=== PATIENT | female | born 1940 | race Caucasian/White ===

== ENCOUNTER 2022-02-13 12:24 | Inpatient (IN) | payer MEDICARE, BC, SELFPAY ==
[2022-02-13] VITALS (10 sets, daily range): BP systolic 124–156; BP diastolic 58–88; PULSE 69–85; RESP 16–24; TEMP 36.3–36.6; O2SAT 97–100
--- NOTE | ~2022-02-13 | US_ITS ---
EXAMINATION: US renal BI DATE: 02/14/2022 13:16 INDICATION: Renal insufficiency TECHNIQUE: Multiple grayscale and Doppler ultrasound images of the kidneys were obtained. COMPARISON: None. FINDINGS: The right kidney measures 10.2 x 4.5 x 5.8 cm. The left kidney measures 10.5 x 4.3 x 5.7 cm . The kidneys demonstrate normal parenchymal echogenicity. There is no hydronephrosis. The bladder is decompressed and not well visualized. IMPRESSION: 1. Normal kidneys without hydronephrosis. Reviewed, dictated and finalized at location A.
--- NOTE | ~2022-02-13 | CT_ITS ---
EXAMINATION: CTA chest PE protocol DATE: 02/13/2022 15:38 INDICATION: pulmonary embolism TECHNIQUE: Computed tomography angiography (CTA) of the chest was performed with 100 mL Omnipaque-350 intravenous contrast timed to evaluate the pulmonary arteries. Coronal maximum intensity projection 3D-reconstructions were created by the technologist. The dose-length product (DLP) was 661.17 mGy-cm. Automated exposure control and iterative reconstruction technique were employed. COMPARISON: None. FINDINGS: Lung parenchyma and airways: 1.4 cm spiculated right upper lobe pulmonary nodule, with adjacent pleur al retraction. Interlobular septal thickening. Senescent change with bilateral basilar scar/atelectas is. More focal appearing heterogeneous somewhat rounded opacity in the right lung base. Pleura: Right hemithorax pleural thickening and scarring. Small volume right sided pleural effusion. Thoracic inlet, axillae and chest wall: Unremarkable. Thoracic aorta: Ectasia and mild arch calcification. Mediastinum: Right hilar and mediastinal lymphadenopathy. Dilated central pulmonary arteries as can b e seen with pulmonary arterial hypertension. Small hiatal hernia. Heart and pericardium: Cardiomegaly. Aortic valve calcification. Coronary artery calcifications: Mild. Upper abdomen: No significant finding. Bones: No acute osseous finding. Pulmonary arteries: Study quality: Adequate. No pulmonary emboli detected. IMPRESSION: No CT evidence of acute pulmonary embolus. 1.4 cm right upper lobe pulmonary nodule, recommend follow -up CT in 3 months, PET/CT, or tissue sampling, per Fleischner guidelines. Right basilar atelectasis/ consolidation. Right pleural thickening and small subpleural effusion. Hilar and mediastinal lymphade nopathy. Reviewed, dictated and finalized at location K. IMPRESSION: No CT evidence of acute pulmonary embolus. 1.4 cm right upper lobe pulmonary no dule, recommend follow-up CT in 3 months, PET/CT, or tissue sampling, per Flealthea chner guidelines. Right basilar atelectasis/consolidation. Right pleural thicke danni and small subpleural effusion. Hilar and mediastinal lymphadenopathy.
--- NOTE | ~2022-02-13 | XR_ITS ---
XR chest 1V 02/13/2022 13:25 Indication: Cough Procedure: AP portable chest Comparison: No prior studies for comparison. Findings: Patchy bilateral airspace disease. Portacatheter tip in the SVC. Cardiomegaly. There is api wilder pleural capping bilaterally. No pneumothorax. Small pleural effusions. Impression: 1: Patchy bilateral airspace disease, compatible with pneumonia. 2: Small pleural effusions. Reviewed, dictated and finalized at location A. Impression: 1: Patchy bilateral airspace disease, compatible with pneumonia. 2: Small pleural effusions.
--- NOTE | ~2022-02-13 | XR_ITS ---
EXAMINATION: XR chest 1V portable DATE: 02/14/2022 08:49 INDICATION: Congestive heart failure. TECHNIQUE: frontal view of the chest was obtained. COMPARISON: Chest radiograph and CT dated 02/13/2022 FINDINGS: Left internal jugular central venous port catheter with distal tip at the superior cavoatrial junctio n. Unchanged opacities in the right mid to lower and left lower lung zones. This includes a small rig ht pleural effusion on prior CT. No new opacities, pneumothorax or left-sided pleural effusion. Cardi omegaly. IMPRESSION: 1. Unchanged opacities in the right mid and bilateral lower lung zones which corresponds to atelectas is/scarring and a small right pleural effusion on prior CT. 2. Cardiomegaly. Reviewed, dictated and finalized at location B. IMPRESSION: 1. Unchanged opacities in the right mid and bilateral lower lung zones which co rresponds to atelectasis/scarring and a small right pleural effusion on prior C T. 2. Cardiomegaly.
--- NOTE | ~2022-02-13 | US_ITS ---
EXAMINATION:US venous doppler LE BI INDICATION:Leg swelling TECHNIQUE: Multiple grayscale, color flow and Doppler images of the right and left lower extremity de ep venous systems were obtained and reviewed. COMPARISON:No prior studies for comparison. FINDINGS: The common femoral, superficial femoral and popliteal veins demonstrate normal respiratory variation, augmentation and compressibility. Color flow is also seen within the posterior tibial, pe roneal, greater saphenous and profunda veins. IMPRESSION: 1: No lower extremity deep venous thrombosis. Reviewed, dictated and finalized at location A.
--- NOTE | 2022-02-13 12:50 | ECG_ITS ---
Measurements Intervals [place] Rate: 77 P: 5 PA: 125 QRS: 7 QRSD: 101 T: 27 QT: 412 QTc: 467 Interpretive Statements SINUS RHYTHM NO PREVIOUS ECG AVAILABLE FOR COMPARISON Electronically Signed On 02-14-2022 11:32:14 CDT by Keira Hawk M.D.
[2022-02-13 13:17] LABS: Basophils Absolute Auto 0.1 K/mm3 (0.0-0.1); Basophils Percent Auto 0.7 % (0.2-1.2); Eosinophils Absolute Auto 0.3 K/mm3 (0-0.3); Eosinophils Percent Auto 3.7 % (0-4.4); Hematocrit 32.4 % (37.0-47.0); Hemoglobin 9.1 g/dL (12.0-15.0); Immature Granulocyte Absolute 0.03 K/mm3 (0.00-0.031); Immature Granulocyte Percent A 0.4 % (0-0.5); Lymphocytes Absolute Auto 0.83 K/mm3 (0.9-3.2); Mean Corpuscular HGB Conc 28.1 g/dl (32-36); Mean Corpuscular Hemoglobin 24.8 pg (26-34); Mean Corpuscular Volume 88.3 fl (80-100); Mean Platelet Volume 9.7 fl (7.4-10.4); Monocytes Absolute Auto 0.8 K/mm3 (0.1-0.6); Monocytes Percent Auto 9.9 % (2.6-8.5); Neutrophils Absolute Auto 6.2 K/mm3 (1.3-6.7); Neutrophils Percent Auto 75.3 % (45.5-73.1); Platelet Count Result 279 k/mm3 (150-375); Red Blood Count 3.67 M/mm3 (4.2-5.4); Red Cell Distribution Width 22.3 % (11.5-14.5); White Blood Count 8.3 K/mm3 (4.5-10.0)
[2022-02-13 13:26] LABS: Platelet Estimate Adequate (Adequate)
[2022-02-13 13:27] LABS: Anisocytosis 1+ (NORMAL); Hypochromasia 1+ (NORMAL); INR 1.1; Macrocytosis 1+ (NORMAL); Ovalocytes 1+ (NORMAL); Prothrombin Time 13.4 Seconds (11.1-14.7); Schistocytes None Seen (NORMAL)
[2022-02-13 13:28] LABS: Partial Thromboplastin Time 42.4 SECONDS (22.3-36.8)
[2022-02-13 13:31] LABS: Alanine Aminotransferase 16 U/L (6-35); Albumin Level 3.6 g/dL (3.5-5.1); Alkaline Phosphatase 99 U/L (38-126); Anion Gap 5 mmol/L (8-16); Aspartate Amino Transferase 31 U/L (14-36); Bilirubin,Total 0.4 mg/dL (0.2-1.3); Blood Urea Nitrogen 37 mg/dL (7-17); Calcium 8.4 mg/dL (8.4-10.2); Carbon Dioxide 34 mmol/L (22-30); Chloride 102 mmol/L (98-107); Estimated CRCL calculation 28 ml/min; Estimated Glomerular Filt Rate 39; Glucose 103 mg/dL (65-110); Potassium 4.2 mmol/L (3.4-5.0); Sodium 141 mmol/L (137-145)
[2022-02-13] MEDS: HEPARIN SODIUM LOCK FLUSH 500 UNITS/5 ML VIAL (13:40)
[2022-02-13 13:42] LABS: NT Pro B Type Natriuretic Pept 2210 pg/mL (5-100); Troponin I < 0.012 ng/mL (0.000-0.034)
--- NOTE | 2022-02-13 14:11 | ED.GENADULT ---
HPI - General Adult General Chief complaint: Extremity Problem,Nontraumatic Stated complaint: legs are swelling Time Seen by Provider: 02/13/22 12:38 Source: RN notes reviewed History of Present Illness HPI narrative: Patient presents emergency department from home for swelling of the legs. The patient states for the past several days she has noted increased swelling of her bilateral legs she states that with that she has had some mild erythema around the mid lower leg she states that she does have a history of lung cancer and had gone to get her Keytruda treatment by Dr. Munoz approximately 5 days ago when they noted she had been hypoxic in the office at that time she had been started on oxygen 2 to 3 L and she is continue to wear states she has been feeling short of breath she states she does wear HOME hose she denies any fevers or chills denies any chest pain denies any abdominal pain nausea or vomiting Related Data Home Medications Medication Instructions Recorded Confirmed amlodipine 5 mg-benazepril 20 mg 1 cap PO DAILY 02/13/22 capsule calcium carbonate 600 mg-vitamin 1 tablet PO DAILY 02/13/22 D3 10 mcg (400 unit) tablet (Calcium with Vitamin D) calcium polycarbophil 625 mg 625 mg PO BID 02/13/22 tablet (Fiber-Lax) cyanocobalamin (vitamin B-12) 1,000 mcg subcut MONTHLY 02/13/22 1,000 mcg/mL injection solution diclofenac sodium 1.6 % topical ea topical 02/13/22 gel packet diclofenac sodium 75 mg 75 mg PO BID 02/13/22 tablet,delayed release docusate sodium 100 mg capsule 100 mg PO DAILY 02/13/22 furosemide 40 mg tablet 40 mg PO BID 02/13/22 hydroxychloroquine 200 mg tablet 400 mg PO DAILY 02/13/22 levothyroxine 125 mcg tablet 125 mcg PO DAILY 02/13/22 memantine 28 mg capsule 28 mg PO DAILY 02/13/22 sprinkle,extended release 24hr omeprazole 40 mg capsule,delayed 40 mg PO DAILY 02/13/22 release polysaccharide iron complex 150 mg 150 mg PO BID 02/13/22 iron capsule (iFerex 150) Allergies Allergy/AdvReac Type Severity Reaction Status Date / Time No Known Allergies Allergy Verified 02/13/22 12:43 Review of Systems Review of Systems: Gen.: Denies fevers or chills Eyes: Denies eye pain or visual change ENT: Denies congestion Respiratory: Reports shortness of breath CV: Denies chest pain or palpitations GI: Denies abdominal pain nausea, emesis or diarrhea Musculoskeletal: Denies back pain or muscle pain reports leg swelling Neuro: Denies numbness, tingling, weakness or focal weakness Skin: Denies rash Except as documented, all other systems reviewed and negative [facility] Past Medical History Medical History (Updated 02/13/22 @ 14:53 by Andreas Naylor DO) Lung cancer Social History Social History (Updated 02/13/22 @ 14:51 by Andreas Naylor DO) Smoking status: Never smoker Exam Narrative: APPEARANCE: No acute distress, nontoxic, resting in bed EYES: EOMI HEENT: Normocephalic, atraumatic, OMM RESPIRATORY: No respiratory distress C coarse bilateral lung bases, no wheezing CARDIOVASCULAR: Regular rate and rhythm without murmurs rubs or gallops. ABDOMINAL: Soft, nontender, nondistended, no rebound or guarding MUSCULOSKELETAl: Moves all extremities. No clubbing, cyanosis 3+ edema to bilateral lower extremities bilateral selfies pulse 2+ NEURO: Awake and alert. Following commands, speech normal, no focal deficits SKIN:: Warm, dry. No rashes lesions mild erythema around the bilateral lower legs consistent with venous stasis dermatitis no open wounds PSYCHIATRIC: Normal affect/mood, Course Course Emergency Course: Discussed with TARYN Mckinley for Dr. Ochoa presentation work-up agrees with admission Discussed with Dr. Munoz presentation work-up agrees with consult Discussed with patient and family results of workup and diagnosis. Discussed need for admission. Patient and family understand and agree to current treatment plan Vital Signs Vital signs: Vital Signs
[2022-02-13] MEDS: FUROSEMIDE INJ 40 MG/4 ML VIAL 20 MG IV PUSH (15:40)
--- NOTE | 2022-02-13 16:24 | ADMGEN ---
This patient, Negin Pastrana, was admitted to Medical Room 256-. Patient/family oriented to hospital policies and general routines including ID bracelet, bed and alarms, visiting hours, pain management, procedures, bathroom and other care routines, personal items, smoking policy, room service/diet, and visiting hours. Information on how to activate the Rapid Response Team has been discussed. Patient/Family are encouraged to report perceived risks to care and to ask questions if they do not understand what they are told or what they should do.
[2022-02-13 17:21] LABS: Troponin I < 0.012 ng/mL (0.000-0.034)
--- NOTE | 2022-02-13 20:23 | PM.IMHP ---
H&P: HPI History of Present Illness Date/Time: 02/13/22 20:23 [facility] Past Medical History Medical History (Updated 02/13/22 @ 14:53 by Andreas Naylor DO) Lung cancer Family History Family History (Updated 02/13/22 @ 16:54 by Yumiko Schmid RN) Other Family history unknown Social History Social History (Updated 02/13/22 @ 14:51 by Andreas Naylor DO) Smoking status: Never smoker Alcohol intake: never Substance use: never Substance use type: does not use Spiritual care concerns: No Meds Home Medications and Allergies Home Medications Medication Instructions Recorded Confirmed Type amlodipine 5 mg-benazepril 20 mg 1 cap PO DAILY 02/13/22 02/13/22 History capsule calcium carbonate 600 mg-vitamin 1 tablet PO DAILY 02/13/22 02/13/22 History D3 10 mcg (400 unit) tablet (Calcium with Vitamin D) calcium polycarbophil 625 mg 625 mg PO BID 02/13/22 02/13/22 History tablet (Fiber-Lax) cyanocobalamin (vitamin B-12) 1,000 mcg subcut MONTHLY 02/13/22 02/13/22 History 1,000 mcg/mL injection solution diclofenac sodium 1.6 % topical 1 ea topical BID 02/13/22 02/13/22 History gel packet diclofenac sodium 75 mg 75 mg PO BID 02/13/22 02/13/22 History tablet,delayed release docusate sodium 100 mg capsule 100 mg PO DAILY 02/13/22 02/13/22 History furosemide 40 mg tablet 20 mg PO BID 02/13/22 02/13/22 History hydroxychloroquine 200 mg tablet 400 mg PO DAILY 02/13/22 02/13/22 History levothyroxine 125 mcg tablet 125 mcg PO DAILY 02/13/22 02/13/22 History memantine 28 mg capsule 28 mg PO DAILY 02/13/22 02/13/22 History sprinkle,extended release 24hr omeprazole 40 mg capsule,delayed 40 mg PO DAILY 02/13/22 02/13/22 History release polyethylene glycol 3350 17 17 g PO DAILY PRN Constipation 02/13/22 02/13/22 History gram/dose oral powder (Miralax) polysaccharide iron complex 150 mg 150 mg PO BID 02/13/22 02/13/22 History iron capsule (iFerex 150) Allergies Allergy/AdvReac Type Severity Reaction Status Date / Time Tetracyclines Allergy Unknown Verified 02/13/22 16:46 Vital Signs Vital Signs - 24 hr 02/13/22 12:39 02/13/22 12:45 02/13/22 13:45 Temperature 97.4 F L Pulse Rate 81 85 77 Respiratory Rate 22 H 24 H 22 H Blood Pressure 124/88 148/59 H 138/79 Pulse Oximetry 100 100 100 Oxygen Delivery Room Air Oxygen Flow Rate 02/13/22 14:00 02/13/22 12:45 02/13/22 15:00 Temperature Pulse Rate 80 81 Respiratory Rate 24 H 22 H Blood Pressure 156/62 H 131/81 Pulse Oximetry 100 100 98 Oxygen Delivery Nasal Cannula Oxygen Flow Rate 3 02/13/22 16:24 02/13/22 16:55 02/13/22 17:00 Temperature 97.8 F Pulse Rate 74 82 Respiratory Rate 18 Blood Pressure 156/87 H Pulse Oximetry 97 97 Oxygen Delivery Nasal Cannula Oxygen Flow Rate 3 H&P: Results Labs Labs: Short CBC 02/13/22 Range/Units 13:09 WBC 8.3 (4.5-10.0) K/mm3 Hgb 9.1 L (12.0-15.0) g/dL Hct 32.4 L (37.0-47.0) % Plt Count 279 (150-375) k/mm3 BMP 02/13/22 13:09 Sodium 141 Potassium 4.2 Chloride 102 Carbon Dioxide 34 H BUN 37 H Creatinine 1.30 H Glucose 103 Calcium 8.4 Cardiac Enzymes 02/13/22 02/13/22 Range/Units 13:09 16:55 Troponin I < 0.012 < 0.012 (0.000-0.034) ng/mL Liver Function 02/13/22 Range/Units 13:09 Total Bilirubin 0.4 (0.2-1.3) mg/dL AST 31 (14-36) U/L ALT 16 (6-35) U/L Alkaline Phosphatase 99 (38-126) U/L Albumin 3.6 (3.5-5.1) g/dL
[2022-02-13] MEDS: CENTRAL LINE FLUSH 10 ML IV PUSH (21:09)
[2022-02-13 21:39] LABS: Troponin I < 0.012 ng/mL (0.000-0.034)
--- NOTE | 2022-02-13 22:00 | PM.IMHP ---
H&P: HPI History of Present Illness Date/Time: 02/13/22 22:00 Chief Complaint: Lower extremity swelling. Narrative: This is a very pleasant 81-year-old female with dementia, hypertension, aortic valve stenosis, sarcoidosis, iron deficiency anemia, hypothyroidism, sarcoidosis, C diff, GERD, breast cancer, and lung cancer for which she is receiving Keytruda who presented to the emergency department for evaluation of lower extremity swelling. She is able to provide some history though her son and daughter provide additional information, with the patient's permission. She is from [place], [place] and moved to the area about 3 months ago to be closer to her son. She lives in assisted living at [facility] and she has been doing pretty well however more recently she has developed increasing swelling in her lower legs and her Lasix doses have gradually increased. Unfortunately it does not seem to be helping the swelling in her legs much and it is now to the point where she is having weeping of her legs. She also notes increasing shortness of breath and she has been consistently on 3 liters nasal cannula since last week after she was found to have SpO2 is in the upper 70s to lower 80s. Due to concerns for possible congestive heart failure, she was brought in today for evaluation. Her vital signs were stable on arrival to the ED and her oxygen saturations have been well within normal limits on 3 liters. Labs were significant for an increase in BUN and creatinine from baseline, stable normocytic anemia, normal troponin, and a BNP of 2210. Venous Doppler ultrasounds were negative for DVT. Chest x-ray showed small pleural effusions and patchy bilateral airspace disease compatible with pneumonia. A subsequent CTA of the chest showed no evidence of pulmonary embolism, a 1.4 centimeter right upper lobe spiculated pulmonary nodule, right basilar atelectasis/consolidation, and hilar and medial lymphadenopathy. Central pulmonary arteries were also dilated and her heart was enlarged. She has since been admitted to the hospital for further workup and treatment. While in the ED she received a dose of azithromycin and ceftriaxone for possible pneumonia and she was also given 20 milligrams furosemide IV push. With further questioning she has had a bit of a runny nose though she has no symptoms to suggest acute pulmonary infection or any infection for that matter and she specifically denies fever, chills, sweats, sinus congestion, sore throat, cough, nausea, vomiting, diarrhea, and dysuria. She has no known history of coronary artery disease or congestive heart failure and she has not had chest pain, pleuritic pain, or palpitations. She has been told that she needs to elevate her feet however at the time my evaluation she continues to place them flat on the ground after her son puts them up for her. She has Adan hose at her assisted living facility though it does not sound as though they have been putting them on her due to weeping. Aside from fatigue she has no specific complaints at this time. Review of Systems Review of Systems: Twelve systems were reviewed. No fever, chills, or sweats. No known sick contacts. No concerns for aspiration. She has chronic pain in her neck due to spinal stenosis and was recently started back on diclofenac however that has not really helped with her symptoms at all. She is followed by Dr. Munoz for her lung cancer and is receiving Keytruda infusions; last April she went through 3 rounds of chemotherapy but just did not tolerate that well. Keytruda seems to be keeping things stable, per family report. She was diagnosed with sarcoidosis decades ago and apparently it had involved the lung at that time and she was followed by a pile trimmer in [place]. No history of venous thromboembolism. Except as documented, all other systems were reviewed and are negative. [facility]LY [facility], [facility] Past Medical History Medical History Ao
[2022-02-14] VITALS (9 sets, daily range): BP systolic 129–153; BP diastolic 53–61; PULSE 69–89; RESP 16–18; TEMP 36.6–36.7; O2SAT 97–98
--- NOTE | 2022-02-14 00:56 | ECHO_ITS ---
Patient Info Name: Negin Pastrana Age: 81 years : 1940 Gender: Female Ht: 66 in Wt: 142 lbs BSA: 1.74 m2 HR: 79 bpm BP: 153 / 61 mmHg Heart Rhythm: Sinus Rhythm Technical Quality: Fair Exam Date: 02/14/2022 2:21 PM Exam Location: [facility] Patient Status: Inpatient Admit Date: 02/13/2022 Staff Ordering Physician: Arlen Kc PA-C Surveyor Helper Rod: Janet Soto RDCS Attending Provider: Dilip Garcia MD Referring Physician: Yamini GARCIA; Exam Type: CA echo doppler color flow Study Info Indications - Aortic valve stenosis, cardiomegaly Complete two-dimensional, color flow and Doppler transthoracic echocardiogram is performed. Summary 1. Technically difficult study with limited views. 2. Left ventricular systolic function is normal, estimated at 60-65%. 3. The left ventricular diastolic function is grade I diastolic dysfunction. 4. Right ventricular systolic function is normal. 5. There is moderate aortic valve stenosis. Left Ventricle Left ventricular chamber dimension is normal. Left ventricular systolic function is normal, estimated at 60-65%. The left ventricular diastolic function is grade I diastolic dysfunction. Right Ventricle Right ventricular chamber dimension is normal. Right ventricular systolic function is normal. Left Atria Left atrial chamber dimension is moderately enlarged. Right Atria Right atrial chamber dimension is moderately enlarged. Aortic Valve The aortic valve is not well visualized. There is moderate aortic valve stenosis. There is no aortic valve regurgitation. Pulmonic Valve The pulmonic valve is not well visualized. Mitral Valve The mitral valve has thickened leaflets. There is no mitral valve stenosis. There is no mitral valve regurgitation. There is mild mitral valve calcification. Tricuspid Valve The tricuspid valve leaflets are normal. There is no significant tricuspid valve stenosis. There is no tricuspid valve regurgitation. Pericardium/Pleural There is no pericardial effusion. Inferior Vena Cava Normal inferior vena cava with >50% collapse upon inspiration consistent with normal right atrial pressure, 3 mmHg. Left Ventricular Outflow Tract Name Value Normal LVOT 2D LVOT Diameter 1.9 cm LVOT Doppler LVOT Peak Gradient 5 mmHg LVOT Mean Gradient 2 mmHg LVOT VTI 23 cm LVOT VTI/AV VTI Ratio 0.4 LVOT Stroke Volume 62 ml LVOT CO 4.6 l/min LVOT CI 2.7 l/min/m2 Mitral Valve Name Value Normal MV Doppler MV Decel Caroline 577 cm/s2 MV PHT 59 ms MV Area (PHT)
[2022-02-14] MEDS: LEVOTHYROXINE SODIUM 125 MCG TABLET PO (05:39)
[2022-02-14] MEDS: CENTRAL LINE FLUSH 10 ML IV PUSH ×3 (05:40→23:00)
[2022-02-14 05:47] LABS: Basophils Absolute Auto 0.1 K/mm3 (0.0-0.1); Basophils Percent Auto 0.8 % (0.2-1.2); Eosinophils Absolute Auto 0.3 K/mm3 (0-0.3); Eosinophils Percent Auto 4.3 % (0-4.4); Hematocrit 31.1 % (37.0-47.0); Hemoglobin 8.9 g/dL (12.0-15.0); Immature Granulocyte Absolute 0.03 K/mm3 (0.00-0.031); Immature Granulocyte Percent A 0.4 % (0-0.5); Lymphocytes Percent Auto 11.4 % (18.3-44.2); Mean Corpuscular HGB Conc 28.6 g/dl (32-36); Mean Corpuscular Hemoglobin 25.2 pg (26-34); Mean Corpuscular Volume 88.1 fl (80-100); Monocytes Percent Auto 12.4 % (2.6-8.5); Neutrophils Absolute Auto 5.6 K/mm3 (1.3-6.7); Neutrophils Percent Auto 70.7 % (45.5-73.1); Platelet Count Result 269 k/mm3 (150-375); Red Blood Count 3.53 M/mm3 (4.2-5.4); White Blood Count 7.9 K/mm3 (4.5-10.0)
[2022-02-14 05:59] LABS: Alanine Aminotransferase 15 U/L (6-35); Albumin Level 3.3 g/dL (3.5-5.1); Alkaline Phosphatase 104 U/L (38-126); Anion Gap 5 mmol/L (8-16); Aspartate Amino Transferase 27 U/L (14-36); Bilirubin,Total 0.3 mg/dL (0.2-1.3); Blood Urea Nitrogen 29 mg/dL (7-17); CRP 5.8 mg/dL (<1.0); Calcium 8.4 mg/dL (8.4-10.2); Carbon Dioxide 38 mmol/L (22-30); Chloride 97 mmol/L (98-107); Estimated CRCL calculation 28 ml/min; Estimated Glomerular Filt Rate 39; Glucose 84 mg/dL (65-110); Magnesium 2.1 mg/dL (1.6-2.3); Sodium 140 mmol/L (137-145)
[2022-02-14 06:22] LABS: Procalcitonin 0.1 ng/mL
[2022-02-14 06:29] LABS: Platelet Estimate Adequate (Adequate)
[2022-02-14 06:30] LABS: Anisocytosis 1+ (NORMAL); Hypochromasia 1+ (NORMAL); Ovalocytes 1+ (NORMAL); Schistocytes None Seen (NORMAL)
[2022-02-14] MEDS: DICLOFENAC SODIUM 1% 100 GM GEL (*BKC) 1 APPLIC TOPICAL ×2 (09:17→16:21)
[2022-02-14] MEDS: ENOXAPARIN 30 MG/0.3 ML SYRINGE SUB-Q (09:17)
[2022-02-14] MEDS: MEMANTINE HCL XR 28 MG CAP PO (09:19)
[2022-02-14] MEDS: POLYSACCHARIDE IRON COMPLEX 150 MG CAPSULE PO ×2 (09:19→16:22)
[2022-02-14] MEDS: lisinopriL 20 MG TABLET PO (09:20)
[2022-02-14] MEDS: DOCUSATE SODIUM 100 MG CAPSULE PO (09:20)
[2022-02-14] MEDS: calcium polycarbophiL 625 MG TABLET PO ×2 (09:20→16:22)
[2022-02-14] MEDS: amLODIPine BESYLATE 5 MG TABLET PO (09:20)
[2022-02-14] MEDS: PANTOPRAZOLE 40 MG TABLET PO ×2 (09:20→16:22)
[2022-02-14] MEDS: HYDROXYCHLOROQUINE SULFATE 200 MG TABLET 400 MG PO (09:31)
--- NOTE | 2022-02-14 10:12 | PM.CNCAR ---
Assessment and Plan Assessment and plan (1) Lower extremity edema: Code(s): R60.0 - Localized edema Status: Acute (2) Hypertension: Code(s): I10 - Essential (primary) hypertension Status: Acute (3) Aortic valve stenosis: Code(s): I35.0 - Nonrheumatic aortic (valve) stenosis Status: Acute (4) Lung cancer: Code(s): C34.90 - Malignant neoplasm of unspecified part of unspecified bronchus or lung Status: Acute Plan We have been consulted for aortic stenosis. Recent echocardiogram from [place] from 09/2021 shows moderate . An echocardiogram has been ordered here and is pending. Will follow up on the results. Further recommendations pending results of echocardiogram. History of Present Illness History of Present Illness Consult date/time: 02/14/22 10:12 Requesting physician: Arlen Kc PA-C Consult reason: aortic stenosis Reason For Visit: Community Acquired Pneumonia,CHF,Lung Cancer Narrative: Patient is a 81-year-old female with a history of lung cancer on immunotherapy, breast cancer, hypertension, aortic valve stenosis, history of sarcoidosis, iron deficiency anemia, hypothyroidism, who presents for lower extremity edema. Son is present at bedside this morning. Patient is initially from [place], [place] but moved closer to this area to be closer to her family. She lives in an assisted living facility. Patient has been having increased lower extremity edema, had increased her dose of Lasix at home, but did not notice much improvement. Patient also reports that she has been having exertional shortness of breath for some time now. No chest pain. An echocardiogram from 09/2021 done at [facility] in [place] shows: Normal LVEF at 60-65%. Moderate eccentric LVH Grade 2 diastolic dysfunction Normal RV size and function. Moderate aortic stenosis with maxium gradient of 44mmHg, mean gradient of 21mmHg, peak velocity of 3.33 m/s. Severely calcified aortic cusps. Mild AR. Review of Systems Review of Systems: All systems reviewed & are unremarkable except as noted in HPI and below (HPI) [facility] Past Medical History Medical History Aortic valve stenosis Cancer of right breast Status post lumpectomy and radiation. Clostridium difficile infection Dementia Gastroesophageal reflux disease Hypertension Hypothyroidism Lung cancer Acute 2D infusions per Dr. Munoz. Lymphedema of right arm Sarcoidosis Spinal stenosis Surgical History Surgical History History of appendectomy History of arthroplasty of right knee History of arthroscopy of right shoulder History of blepharoplasty History of cataract extraction History of cholecystectomy History of hysterectomy History of lumpectomy of right breast With lymph node dissection. History of total left hip arthroplasty Family History Family History Other Family history unknown Social History Social History Social History: Healthcare power of material carrier: Noni Summers'Brenden, daughter. Code status: Do not resuscitate. Smoking status: Never smoker Alcohol intake: never Substance use: never Substance use type: does not use Additional living arrangements comments: From [place]. She has 5 children. Resides in assisted living at [facility]. Spiritual care concerns: No Meds Home Medications and Allergies Home Medications Medication Instructions Recorded Confirmed Type amlodipine 5 mg-benazepril 20 mg 1 cap PO DAILY 02/13/22 02/13/22 History capsule calcium carbonate 600 mg-vitamin 1 tablet PO DAILY 02/13/22 02/13/22 History D3 10 mcg (400 unit) tablet (Calcium with Vitamin D) calcium polycarbophil 625 mg 625 mg PO BID 02/13/22 02/13/22 History tablet (Fiber-Lax) cyanocobalamin (vitamin
--- NOTE | 2022-02-14 10:51 | PM.CNPUL ---
Assessment and Plan Assessment and plan (1) Hypoxia: Code(s): R09.02 - Hypoxemia Status: Acute Assessment and Plan: Patient with a history of sarcoidosis diagnosed decades ago with a skin biopsy and had no respiratory issues up until the last year. Patient is a never smoker but was exposed to secondhand smoke and has lung cancer status post chemotherapy which she did not tolerate and currently on Katruda. Patient also his a history of aortic stenosis and now has evidence of fluid overload. she was prescribed oxygen on 02/08 by her oncologist and currently she is on 3 L nasal cannula saturations 98%. CT angiogram of the chest is negative for PE but has multiple right lung lesions that appear stable since 10/2021. Etiology of hypoxemia include fluid overload, lung cancer, bilateral bibasilar atelectasis. doubt active flare of sarcoidosis and doubt pneumonia. Agree with aggressive diuresis as tolerated per her cardiac and renal system stumps per the hospitalist and the cardiology team. The patient has multiple bilateral lung masses as well as bibasilar atelectasis and is receiving active therapy for her oncologist. Encourage patient to be out of bed to prevent worsening atelectasis. No active treatment for sarcoidosis. Agree with no antibiotics from a pulmonary perspective at this time ( she does have swollen erythematous lower extremities).. Spoke with Kamar Mejia, will follow with you. (2) Lung cancer: Code(s): C34.90 - Malignant neoplasm of unspecified part of unspecified bronchus or lung Status: Acute Assessment and Plan: The patient has multiple bilateral lung masses as well as bibasilar atelectasis and is receiving active therapy for her oncologist, who has been consulted. (3) Sarcoidosis: Code(s): D86.9 - Sarcoidosis, unspecified Status: Acute Assessment and Plan: Sarcoidosis diagnosed decades ago with the skin biopsy. The family tells me she had purple raised lesions on her skin that were biopsied and told she had sarcoid she would be given prednisone and the skin lesions would improve. Her last prednisone course was at least 5 years ago. 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 She is maintained on Plaquenil. I see no evidence of an active sarcoid flare at this time. History of Present Illness History of Present Illness Consult date: 02/14/22 Chief complaint: Community Acquired Pneumonia,CHF,Lung Cancer Narrative: On 02/2022: This is a new pulmonary consult for hypoxemia, sarcoidosis and lung cancer. 81-year-old with a history of dementia, hypertension, aortic stenosis, GERD, breast cancer diagnosis 7-8 years ago status post lumpectomy and radiation therapy with right upper extremity lymphedema but no evidence of a recurrence, hypothyroidism, lung cancer status post chemotherapy in April of 2021 that was poorly tolerated and recently on Keytruda her last dose was given on 01/18/2022. Sarcoidosis diagnosed decades ago with the skin biopsy. The family tells me she had purple raised lesions on her skin that were biopsied and told she had sarcoid she would be given prednisone and the skin lesions would improve. Her last prednisone course was at least 5 years ago. 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 She is maintained on Plaquenil. At baseline the patient is in [place] assisted living when she was doing well she could walk to the dining room but recently she is having trouble walking across the room. For the last year she has not been able to lay flat. She is a never smoker, she was exposed to secondhand smoke from her from 1959 to 1985. She denies vaping, illicit drug use, sandblasting, welding, asbestos were, professional painting or steel mill
--- NOTE | 2022-02-14 11:00 | P.PNIM_ITS ---
Progress Note: A&P Assessment and Plan (1) CHF (congestive heart failure): Code(s): I50.9 - Heart failure, unspecified Status: Acute Assessment and Plan: * At this point is very minimal about 1-2+ pitting * Lasix 40mg IV once in the ED and once this afternoon * Continue to trend urine labs, currently stable on 30 * CT showed cardiomegaly and a small effusion * Probably a acute on chronic diastolic heart failure, likely in exacerbation with the shortness of breath * Repeat echo ordered * Echo showed EF of 60-65% with a grade 2 diastolic dysfunction * 1-2+ pitting edema bilaterally * Right arm edema * Follow renal function * Daily weights * Adan hose * Trend urine output * Strict I&Os (2) Renal insufficiency: Code(s): N28.9 - Disorder of kidney and ureter, unspecified Status: Acute Assessment and Plan: * BUN Cr slightly elevated /.30 * Continue to trend labs * Lasix very sparingly * Seems to be doing ok at this point * FEUrea is 33.1% indicating pre renal disease * Renal ultra sound does not indicate any current renal findings. (3) Sarcoidosis: Code(s): D86.9 - Sarcoidosis, unspecified Status: Acute Assessment and Plan: * Stable * Pulmonology consulted thank you * Continue to trend (4) Aortic valve stenosis: Code(s): I35.0 - Nonrheumatic aortic (valve) stenosis Status: Acute Assessment and Plan: * Seen on the echo * Stable * Cardiology consulted (5) Dementia: Code(s): F03.90 - Unspecified dementia, unspecified severity, without behavioral disturbance, psychotic disturbance, mood disturbance, and anxiety Status: Acute Assessment and Plan: * Continue home medications * Stable at this time (6) Lung cancer: Code(s): C34.90 - Malignant neoplasm of unspecified part of unspecified bronchus or lung Status: Acute Assessment and Plan: * Currently is following Dr. Munoz * Currently getting treatment of keytruda * Seems stable * Probably contributing to the hypoxia * Continue with outpatient treatment (7) Hypothyroidism: Code(s): E03.9 - Hypothyroidism, unspecified Status: Acute Assessment and Plan: * TSH 1.520 * Continue levothyroxine (8) Hypertension: Code(s): I10 - Essential (primary) hypertension Status: Acute Assessment and Plan: * BP 153/61 * Continue home amlodipine-benazepril * Trend BP * adjust therapy as indicated Time Spent With Patient Time with patient: Greater than 35 minutes Subjective Date/time seen: 02/14/22 1100 Interval history: 02/14/22 1100 Patient states that she is doing okay. She is unable to really lay flat as she is very short of breath. Her son was in the room and stated that the patient did need to her Adan hose put on and her lymphedema treatment for her arm. She denies any chest pain, shortness a breath, nausea, vomiting, diarrhea, constipation weakness or fatigue. According to son the patient does not walk very far due to shortness of breath. 02/13/22? 1215 Patient is a 66-year-old male with a past medical history of AFib, peripheral neuropathy, hypertension, insulin-dependent diabetes, COPD, hypothyroidism who presented to the ED for altered ment
--- NOTE | 2022-02-14 11:00 | PM.IMPN ---
Progress Note: A&P Assessment and Plan (1) CHF (congestive heart failure): Code(s): I50.9 - Heart failure, unspecified Status: Acute Assessment and Plan: At this point is very minimal about 1-2+ pitting Lasix 40mg IV once in the ED and once this afternoon Continue to trend urine labs, currently stable on 06.06 CT showed cardiomegaly and a small effusion Probably a acute on chronic diastolic heart failure, likely in exacerbation with the shortness of breath Repeat echo ordered Echo showed EF of 60-65% with a grade 2 diastolic dysfunction 1-2+ pitting edema bilaterally Right arm edema Follow renal function Daily weights Adan hose Trend urine output Strict I&Os (2) Renal insufficiency: Code(s): N28.9 - Disorder of kidney and ureter, unspecified Status: Acute Assessment and Plan: BUN Cr slightly elevated /06.06 Continue to trend labs Lasix very sparingly Seems to be doing ok at this point FEUrea is 33.1% indicating pre renal disease Renal ultra sound does not indicate any current renal findings. (3) Sarcoidosis: Code(s): D86.9 - Sarcoidosis, unspecified Status: Acute Assessment and Plan: Stable Pulmonology consulted thank you Continue to trend (4) Aortic valve stenosis: Code(s): I35.0 - Nonrheumatic aortic (valve) stenosis Status: Acute Assessment and Plan: Seen on the echo Stable Cardiology consulted (5) Dementia: Code(s): F03.90 - Unspecified dementia, unspecified severity, without behavioral disturbance, psychotic disturbance, mood disturbance, and anxiety Status: Acute Assessment and Plan: Continue home medications Stable at this time (6) Lung cancer: Code(s): C34.90 - Malignant neoplasm of unspecified part of unspecified bronchus or lung Status: Acute Assessment and Plan: Currently is following Dr. Munoz Currently getting treatment of keytruda Seems stable Probably contributing to the hypoxia Continue with outpatient treatment (7) Hypothyroidism: Code(s): E03.9 - Hypothyroidism, unspecified Status: Acute Assessment and Plan: TSH 1.520 Continue levothyroxine (8) Hypertension: Code(s): I10 - Essential (primary) hypertension Status: Acute Assessment and Plan: BP 153/61 Continue home amlodipine-benazepril Trend BP adjust therapy as indicated Time Spent With Patient Time with patient: Greater than 35 minutes Subjective Date/time seen: 02/14/22 1100 Interval history: 02/14/22 1100 Patient states that she is doing okay. She is unable to really lay flat as she is very short of breath. Her son was in the room and stated that the patient did need to her Adan hose put on and her lymphedema treatment for her arm. She denies any chest pain, shortness a breath, nausea, vomiting, diarrhea, constipation weakness or fatigue. According to son the patient does not walk very far due to shortness of breath. 02/13/22? 1215 Patient is a 66-year-old male with a past medical history of AFib, peripheral neuropathy, hypertension, insulin-dependent diabetes, COPD, hypothyroidism who presented to the ED for altered mental status.? The patient's stated that he had woke up normal and had no issues however throughout the day he started to get more confused and she got really worried when he did know who she was.? Sure so reported that the patient did have a fever.? Patient does have multiple wounds on bilateral lower extremities.? They go to a wound clinic at [facility] in [place].? However patient does have a wound on his right correa and heel.? He also appears to have a wound that is healed on the left heel.? The patient's denies that he has had any unusual complaints including chest pain, shortness of breath, nausea,
[2022-02-14 12:21] LABS: Creatinine Urine 70.5 mg/dL; Sodium Urine Random 81 meq/L; Urea Random Urine 521 MG/DL
[2022-02-14] MEDS: FUROSEMIDE INJ 40 MG/4 ML VIAL IV PUSH (15:40)
--- NOTE | 2022-02-14 16:22 | WPDCDIQUERY2 ---
CDI Query Clarification Request ER physician documented: Discharge Clinical Impression: ?Community acquired pneumonia, Lung cancer, CHF (congestive heart failure), Acute renal insufficiency, Acute respiratory failure with hypoxia Chest X-Ray? 02/13/22 13:27 Impression: 1: Patchy bilateral airspace disease, compatible with pneumonia. 2:? Small pleural effusions. Please clarify if Pneumonia has been ruled in or ruled out as it is not documented elsewhere. ? <Daysi Sexton - Last Filed: 02/14/22 16:27> Provider Comments Further review of the chest xray on the 10 indicates unchanged opacities represent scarring, atelectasis, etc. PNA is not valid as the patient has a known lung cancer, receives Chemo. Pulm is also on the case and is not calling this PNA, but does indicate multiple lung masses Oncology is also on the case and calling these opacities furthering cancer, and concludes the respiratory status is deminished due to fluid overload In further WBC are normal, no cough, no increase in supplemental oxygen, Procal is 0.1 It appears ED documentation listed differential diagnoses, from initial findings, hence why pneumonia is not currently documented <EVELIA Ochoa - Last Filed: 02/15/22 08:40>
--- NOTE | 2022-02-14 16:27 | P.CDI_ITS ---
CDI Query Clarification Request 02/13/ER physician documented: Discharge Clinical Impression: Community acquired pneumonia, Lung cancer, CHF (congestive heart failure), Acute renal insufficiency, Acute respiratory failure with hypoxia 02/13 Hospitalist documented: Plan The patient was brought into the emergency department today for evaluation of worsening lower extremity edema and hypoxia, now requiring continuous 3 liters nasal cannula over the past 1 week. Cardiomegaly is noted on imaging today and with lower extremity edema and elevated BNP there are concerns for congestive heart failure 02/14 Hospitalist documented: CHF (congestive heart failure): ?Code(s): I50.9 - Heart failure, unspecified ?Status:?Acute ?Assessment and Plan: * At this point is very minimal about 1-2+ pitting * Lasix 40mg IV once in the ED and once this afternoon * Continue to trend urine labs, currently stable on .30 * CT showed cardiomegaly and a small effusion * Repeat echo ordered * Echo showed EF of 60-65% with a grade 2 diastolic dysfunction * 1-2+ pitting edema bilaterally * Right arm edema * Follow renal function * Daily weights * Adan hose * Trend urine output * Strict I&O Please verify diagnosis, CHF, (Congestive Heart Failure) Acuity: Type: Systolic Diastolic Combined Other Unable to determine <Daysi Sexton - Last Filed: 02/14/22 16:39> 02/13/ER physician documented: Discharge Clinical Impression: Community acquired pneumonia, Lung cancer, CHF (congestive heart failure), Acute renal insufficiency, Acute respiratory failure with hypoxia 02/13 Hospitalist documented: Plan The patient was brought into the emergency department today for evaluation of worsening lower extremity edema and hypoxia, now requiring continuous 3 liters nasal cannula over the past 1 week. Cardiomegaly is noted on imaging today and with lower extremity edema and elevated BNP there are concerns for congestive heart failure 02/14 Hospitalist documented: CHF (congestive heart failure): ?Code(s): I50.9 - Heart failure, unspecified ?Status:?Acute ?Assessment and Plan: * At this point is very minimal about 1-2+ pitting * Lasix 40mg IV once in the ED and once this afternoon * Continue to trend urine labs, currently stable on .30 * CT showed cardiomegaly and a small effusion * Repeat echo ordered * Probably a acute on chronic diastolic heart failure, likely in exacerbation with the shortness of breath * Echo showed EF of 60-65% with a grade 2 diastolic dysfunction * 1-2+ pitting edema bilaterally * Right arm edema * Follow renal function * Daily weights * Adan hose * Trend urine output * Strict I&O Please verify diagnosis, CHF, (Congestive Heart Failure) Acuity: Type: Systolic Diastolic Combined Other Unable to determine <Kamar Mejia APN-Amanda - Last Filed: 02/15/22 08:22>
--- NOTE | 2022-02-14 16:27 | WPDCDIQUERY2 ---
CDI Query Clarification Request 02/13/ER physician documented: Discharge Clinical Impression: Community acquired pneumonia, Lung cancer, CHF (congestive heart failure), Acute renal insufficiency, Acute respiratory failure with hypoxia 02/13 Hospitalist documented: Plan The patient was brought into the emergency department today for evaluation of worsening lower extremity edema and hypoxia, now requiring continuous 3 liters nasal cannula over the past 1 week. Cardiomegaly is noted on imaging today and with lower extremity edema and elevated BNP there are concerns for congestive heart failure 02/14 Hospitalist documented: CHF (congestive heart failure): ?Code(s): I50.9 - Heart failure, unspecified ?Status:?Acute ?Assessment and Plan: At this point is very minimal about 1-2+ pitting Lasix 40mg IV once in the ED and once this afternoon Continue to trend urine labs, currently stable on 06.06 CT showed cardiomegaly and a small effusion Repeat echo ordered Echo showed EF of 60-65% with a grade 2 diastolic dysfunction 1-2+ pitting edema bilaterally Right arm edema Follow renal function Daily weights Adan hose Trend urine output Strict I&O Please verify diagnosis, CHF, (Congestive Heart Failure) Acuity: Type: Systolic Diastolic Combined Other Unable to determine <Daysi Sexton - Last Filed: 02/14/22 16:39> 02/13/ER physician documented: Discharge Clinical Impression: Community acquired pneumonia, Lung cancer, CHF (congestive heart failure), Acute renal insufficiency, Acute respiratory failure with hypoxia 02/13 Hospitalist documented: Plan The patient was brought into the emergency department today for evaluation of worsening lower extremity edema and hypoxia, now requiring continuous 3 liters nasal cannula over the past 1 week. Cardiomegaly is noted on imaging today and with lower extremity edema and elevated BNP there are concerns for congestive heart failure 02/14 Hospitalist documented: CHF (congestive heart failure): ?Code(s): I50.9 - Heart failure, unspecified ?Status:?Acute ?Assessment and Plan: At this point is very minimal about 1-2+ pitting Lasix 40mg IV once in the ED and once this afternoon Continue to trend urine labs, currently stable on 30 CT showed cardiomegaly and a small effusion Repeat echo ordered Probably a acute on chronic diastolic heart failure, likely in exacerbation with the shortness of breath Echo showed EF of 60-65% with a grade 2 diastolic dysfunction 1-2+ pitting edema bilaterally Right arm edema Follow renal function Daily weights Adan hose Trend urine output Strict I&O Please verify diagnosis, CHF, (Congestive Heart Failure) Acuity: Type: Systolic Diastolic Combined Other Unable to determine <EVELIA Ochoa - Last Filed: 02/15/22 08:22>
[2022-02-14] MEDS: ACETAMINOPHEN 500 MG TABLET 1000 MG PO (16:30)
--- NOTE | 2022-02-14 19:03 | PDONCCN ---
HPI - Date of Consult Date/Time: 02/14/22 19:03 Requesting Physician: Dilip Garcia MD Primary Care Provider: UNKNOWN,DOCTOR - Consult Narrative Reason for consult: Metastatic non-small cell lung cancer Narrative: Negin Pastrana is a 81 year old female with history of metastatic non-small cell lung cancer diagnosed in fall of 2020. Patient is currently on maintenance treatment with Keytruda and her last treatment was last month. She also has a history of dementia, hypertension, sarcoidosis and iron deficiency anemia. She came into the hospital with complain of bilateral lower extremity swelling as well as shortness of breath. CTA chest showed no evidence of pulmonary embolism. There was 1.4 cm right upper lobe pulmonary nodule as well as hilar and mediastinal lymphadenopathy. There was right basilar atelectasis/consolidation. Patient was diagnosed with fluid overload and diuresis was started. She is feeling slightly better. Denies any other new complaints. Review of Systems - Review of Systems All systems reviewed & are unremarkable except as noted in HPI and bel - Neurologic Reports system reviewed and no additional complaints, except as documented PMF Medical History: Medical History (Last Reviewed 02/14/22 @ 15:33 by Arlen Kc PA-C) Aortic valve stenosis Cancer of right breast Status post lumpectomy and radiation. Clostridium difficile infection Dementia Gastroesophageal reflux disease Hypertension Hypothyroidism Lung cancer Acute 2D infusions per Dr. Munoz. Lymphedema of right arm Sarcoidosis Spinal stenosis Surgical History: Surgical History (Last Reviewed 02/14/22 @ 15:33 by Arlen Kc PA-C) History of appendectomy History of arthroplasty of right knee History of arthroscopy of right shoulder History of blepharoplasty History of cataract extraction History of cholecystectomy History of hysterectomy History of lumpectomy of right breast With lymph node dissection. History of total left hip arthroplasty Family History: Family History (Last Reviewed 02/14/22 @ 15:33 by Arlen Kc PA-C) Other Family history unknown - Social History Social History: Social History (Last Reviewed 02/14/22 @ 15:33 by Arlen Kc PA-C) Alcohol Use: Alcohol intake: never Substance Use: Substance use: never Substance use type: does not use Others: Spiritual care concerns: No Smoking Status: Smoking status: Never smoker Exam - Vital Signs Vital Signs - 24 hr 02/13/22 21:09 02/13/22 20:00 02/14/22 05:44 Temperature 36.6 C 36.6 C Pulse Rate 79 79 Respiratory Rate 16 18 Blood Pressure 137/58 L 153/61 H Pulse Oximetry 100 99 97 Oxygen Delivery Nasal Cannula Oxygen Flow Rate 3 02/13/22 20:00 02/14/22 00:00 02/14/22 04:00 Temperature Pulse Rate 69 89 73 Respiratory Rate Blood Pressure Pulse Oximetry Oxygen Delivery Oxygen Flow Rate 02/14/22 08:00 02/14/22 12:00 02/14/22 16:11 Temperature 36.7 C Pulse Rate 75 76 75 Respiratory Rate 16 Blood Pressure 129/53 L Pulse Oximetry 98 Oxygen Delivery Oxygen Flow Rate 02/14/22 16:00 Temperature Pulse Rate 74 Respiratory Rate Blood Pressure Pulse Oximetry Oxygen Delivery Oxygen Flow Rate - Exam HEENT: EOMI, PERRLA, mucous membranes moist and pink Neck: supple. No: JVD Lungs: normal air movement, rales Heart: no murmurs, gallops, or rubs, regular rhythm, regular rate Abdomen: abdomen soft, non-distended, normal bowel sounds Extremities: normal pulses Integumentary: no abnormalities Neurological: normal speech Psychological: mental status NL, mood NL - Lab Results Laboratory Last Values WBC 7.9 K/mm3 (4.5-10.0) 02/14/22 05:39 RBC 3.53 M/mm3 (4.2-5.4) L 02/14/22 05:39 Hgb 8.9 g/dL (12.0-15.0) L 02/14/22 05:39 Hct 31.1 % (37.0-47.0) L 02/14/22 05:39 MCV
[2022-02-14] MEDS: MELATONIN 5 MG TABLET PO (23:00)
[2022-02-15] VITALS (12 sets, daily range): BP systolic 116–137; BP diastolic 58–60; PULSE 66–80; RESP 14–20; TEMP 36.4–36.6; O2SAT 94–100
[2022-02-15] MEDS: LEVOTHYROXINE SODIUM 125 MCG TABLET PO (06:05)
[2022-02-15] MEDS: CENTRAL LINE FLUSH 10 ML IV PUSH ×3 (06:05→20:14)
[2022-02-15 06:17] LABS: Basophils Absolute Auto 0.1 K/mm3 (0.0-0.1); Basophils Percent Auto 0.6 % (0.2-1.2); Eosinophils Absolute Auto 0.3 K/mm3 (0-0.3); Eosinophils Percent Auto 3.7 % (0-4.4); Hematocrit 30.8 % (37.0-47.0); Hemoglobin 8.9 g/dL (12.0-15.0); Immature Granulocyte Absolute 0.02 K/mm3 (0.00-0.031); Immature Granulocyte Percent A 0.3 % (0-0.5); Lymphocytes Absolute Auto 1.04 K/mm3 (0.9-3.2); Lymphocytes Percent Auto 13.2 % (18.3-44.2); Mean Corpuscular HGB Conc 28.9 g/dl (32-36); Mean Corpuscular Hemoglobin 25.6 pg (26-34); Mean Corpuscular Volume 88.5 fl (80-100); Mean Platelet Volume 9.9 fl (7.4-10.4); Monocytes Absolute Auto 0.9 K/mm3 (0.1-0.6); Neutrophils Absolute Auto 5.5 K/mm3 (1.3-6.7); Neutrophils Percent Auto 70.2 % (45.5-73.1); Platelet Count Result 259 k/mm3 (150-375); Red Blood Count 3.48 M/mm3 (4.2-5.4); Red Cell Distribution Width 21.9 % (11.5-14.5); White Blood Count 7.9 K/mm3 (4.5-10.0)
[2022-02-15 06:26] LABS: Alanine Aminotransferase 14 U/L (6-35); Albumin Level 3.2 g/dL (3.5-5.1); Alkaline Phosphatase 92 U/L (38-126); Anion Gap 8 mmol/L (8-16); Aspartate Amino Transferase 26 U/L (14-36); Bilirubin,Total 0.3 mg/dL (0.2-1.3); Blood Urea Nitrogen 24 mg/dL (7-17); Calcium 8.4 mg/dL (8.4-10.2); Carbon Dioxide 38 mmol/L (22-30); Chloride 94 mmol/L (98-107); Estimated CRCL calculation 31 ml/min; Estimated Glomerular Filt Rate 43; Glucose 88 mg/dL (65-110); Magnesium 2.1 mg/dL (1.6-2.3); Potassium 3.7 mmol/L (3.4-5.0); Sodium 140 mmol/L (137-145)
--- NOTE | 2022-02-15 08:56 | PM.PNPUL ---
Progress Note: A&P Assessment and Plan (1) Hypoxia: Code(s): R09.02 - Hypoxemia Status: Acute Assessment and Plan: Patient with a history of sarcoidosis diagnosed decades ago with a skin biopsy and had no respiratory issues up until the last year. Patient is a never smoker but was exposed to secondhand smoke and has lung cancer status post chemotherapy which she did not tolerate and currently on Katruda. Patient also his a history of aortic stenosis and now has evidence of fluid overload. she was prescribed oxygen on 02/08 by her oncologist and currently she is on 3 L nasal cannula saturations 98%. CT angiogram of the chest is negative for PE but has multiple right lung lesions that appear stable since 10/2021. Etiology of hypoxemia include fluid overload, lung cancer, bilateral bibasilar atelectasis. doubt active flare of sarcoidosis and doubt pneumonia. Agree with aggressive diuresis as tolerated per her cardiac and renal system stumps per the hospitalist and the cardiology team. The patient has multiple bilateral lung masses as well as bibasilar atelectasis and is receiving active therapy for her oncologist. Encourage patient to be out of bed to prevent worsening atelectasis. No active treatment for sarcoidosis. Agree with no antibiotics from a pulmonary perspective at this time ( she does have swollen erythematous lower extremities). 02/15 patient said she did sleep last night. She has no cough, phlegm or hemoptysis. Saturations on 3 L nasal cannula is 94%. Creatinine is 1.2, white blood cell count is 7.9. Cumulative diuresis since admission is -640 mL. After aggressive diuresis, patient should have a formal home O2 assessment prior to discharge and an overnight oximetry on 3 L nasal cannula the night before discharge. The patient CT follow-up in the Pulmonary Clinic in 4-6 weeks, I gave this on our business card and informed our chief crew scheduler. Spoke with Kamar Mejia, will sign off, call with questions. (2) Lung cancer: Code(s): C34.90 - Malignant neoplasm of unspecified part of unspecified bronchus or lung Status: Acute Assessment and Plan: The patient has multiple bilateral lung masses as well as bibasilar atelectasis and is receiving active therapy for her oncologist, who has been consulted. plans to resume Keytruda as an outpatient. (3) Sarcoidosis: Code(s): D86.9 - Sarcoidosis, unspecified Status: Acute Assessment and Plan: Sarcoidosis diagnosed decades ago with the skin biopsy. The family tells me she had purple raised lesions on her skin that were biopsied and told she had sarcoid she would be given prednisone and the skin lesions would improve. Her last prednisone course was at least 5 years ago. Arthritis seen a sales order specialist who was on methotrexate for 3-4 years her last dose was in 10 when the cancer of the lung was diagnosed. She is maintained on Plaquenil. I see no evidence of an active sarcoid flare at this time. Subjective Date/time seen: 02/15/22 08:56 Interval history: On 02/2022:? This is a new pulmonary consult for hypoxemia, sarcoidosis and lung cancer.? 81-year-old with a history of dementia, hypertension, aortic stenosis, GERD, breast cancer diagnosis 7-8 years ago status post lumpectomy and radiation therapy with right upper extremity lymphedema but no evidence of a recurrence, hypothyroidism, lung cancer status post chemotherapy in April of 2021 that was poorly tolerated and recently on Keytruda her last dose was given on 01/18/2022. ? Sarcoidosis diagnosed decades ago with the skin biopsy.? The family tells me she had purple raised lesions on her skin that were biopsied and told she had sarcoid she would be given prednisone and the skin lesions would improve.? Her last prednisone course was at least 5 years ago.? Arthritis seen a sales order specialist who was on methotrexate for 3-4 years her last dose was in 10 when the cancer o
--- NOTE | 2022-02-15 10:15 | PM.IMPN ---
Progress Note: A&P Assessment and Plan (1) CHF (congestive heart failure): Code(s): I50.9 - Heart failure, unspecified Status: Acute Assessment and Plan: At this point is very minimal about 1-2+ pitting Lasix 40mg IV BID today Continue to trend urine labs, currently stable on 06.06 CT showed cardiomegaly and a small effusion Probably a acute on chronic diastolic heart failure, likely in exacerbation with the shortness of breath Repeat echo seems to have improved to EF of 60-65% with a grade 1 diastolic disfunction, and moderate aortic valve stenosis 1 pitting edema bilaterally Right arm edema Follow renal function Daily weights Adan hose Trend urine output Strict I&Os (2) Renal insufficiency: Code(s): N28.9 - Disorder of kidney and ureter, unspecified Status: Acute Assessment and Plan: BUN Cr slightly elevated 05/06. Trending down currently 31/05. Baseline Creatinine is 0.7-0.9 Continue to trend labs Lasix 40mg IV BID for today, reassess in the am FEUrea is 33.1% indicating pre renal disease Renal ultra sound does not indicate any current renal findings. (3) Sarcoidosis: Code(s): D86.9 - Sarcoidosis, unspecified Status: Acute Assessment and Plan: Stable Pulmonology consulted thank you Continue to trend (4) Aortic valve stenosis: Code(s): I35.0 - Nonrheumatic aortic (valve) stenosis Status: Acute Assessment and Plan: Seen on the echo Stable Cardiology consulted (5) Dementia: Code(s): F03.90 - Unspecified dementia, unspecified severity, without behavioral disturbance, psychotic disturbance, mood disturbance, and anxiety Status: Acute Assessment and Plan: Continue home medications Stable at this time (6) Lung cancer: Code(s): C34.90 - Malignant neoplasm of unspecified part of unspecified bronchus or lung Status: Acute Assessment and Plan: Currently is following Dr. Munoz Currently getting treatment of keytruda Seems stable Probably contributing to the hypoxia Continue with outpatient treatment (7) Hypothyroidism: Code(s): E03.9 - Hypothyroidism, unspecified Status: Acute Assessment and Plan: TSH 1.520 Continue levothyroxine (8) Hypertension: Code(s): I10 - Essential (primary) hypertension Status: Acute Assessment and Plan: BP 137/60 Continue home amlodipine-benazepril Trend BP adjust therapy as indicated (9) Anemia: Code(s): D64.9 - Anemia, unspecified Status: Acute Assessment and Plan: Seems to be an iron deficient anemia, with a possible component of anemia of chronic disease Anemia labs iron 32, TIBC 376, % sat 9, Ferritin 18.10, B12 622 Continue home iron H/H stable at 8.9/30.8 Continue to trend labs Transfuse if indicated Follow Dr. Munoz for cancer treatments Plan Get a nocturnal hypoxia O2 assessment She also needs a home O2 evaluation upon discharge Time Spent With Patient Time with patient: Greater than 35 minutes Subjective Date/time seen: 02/15/22 1015 Interval history: 02/15/22 1015 Patient seems to be doing okay today. She is ready to go however pulmonology is recommending that we do a nocturnal O2 assessment. She is currently sitting in the chair without her oxygen she is not complaining of any shortness of breath. She states her legs look better today. She states that she is feeling okay. She did eat pretty well today. She was also funny about telling me that she is going to move in with her son even though he is doing a phenomenal job. She should be okay to discharge tomorrow. 02/14/22 1100 Patient states that she is doing okay. She is unable to really lay flat as she is very short of breath. Her son was in the room and stated that the pat
--- NOTE | 2022-02-15 10:15 | P.PNIM_ITS ---
Progress Note: A&P Assessment and Plan (1) CHF (congestive heart failure): Code(s): I50.9 - Heart failure, unspecified Status: Acute Assessment and Plan: * At this point is very minimal about 1-2+ pitting * Lasix 40mg IV BID today * Continue to trend urine labs, currently stable on .30 * CT showed cardiomegaly and a small effusion * Probably a acute on chronic diastolic heart failure, likely in exacerbation w ith the shortness of breath * Repeat echo seems to have improved to EF of 60-65% with a grade 1 diastolic disfunction, and moderate aortic valve stenosis * 1 pitting edema bilaterally * Right arm edema * Follow renal function * Daily weights * Adan hose * Trend urine output * Strict I&Os (2) Renal insufficiency: Code(s): N28.9 - Disorder of kidney and ureter, unspecified Status: Acute Assessment and Plan: * BUN Cr slightly elevated 29/1.30 * Trending down currently 24/.20 * Baseline Creatinine is 0.7-0.9 * Continue to trend labs * Lasix 40mg IV BID for today, reassess in the am * FEUrea is 33.1% indicating pre renal disease * Renal ultra sound does not indicate any current renal findings. (3) Sarcoidosis: Code(s): D86.9 - Sarcoidosis, unspecified Status: Acute Assessment and Plan: * Stable * Pulmonology consulted thank you * Continue to trend (4) Aortic valve stenosis: Code(s): I35.0 - Nonrheumatic aortic (valve) stenosis Status: Acute Assessment and Plan: * Seen on the echo * Stable * Cardiology consulted (5) Dementia: Code(s): F03.90 - Unspecified dementia, unspecified severity, without behavioral disturbance, psychotic disturbance, mood disturbance, and anxiety Status: Acute Assessment and Plan: * Continue home medications * Stable at this time (6) Lung cancer: Code(s): C34.90 - Malignant neoplasm of unspecified part of unspecified bronchus or lung Status: Acute Assessment and Plan: * Currently is following Dr. Munoz * Currently getting treatment of keytruda * Seems stable * Probably contributing to the hypoxia * Continue with outpatient treatment (7) Hypothyroidism: Code(s): E03.9 - Hypothyroidism, unspecified Status: Acute Assessment and Plan: * TSH 1.520 * Continue levothyroxine (8) Hypertension: Code(s): I10 - Essential (primary) hypertension Status: Acute Assessment and Plan: * BP 137/60 * Continue home amlodipine-benazepril * Trend BP * adjust therapy as indicated (9) Anemia: Code(s): D64.9 - Anemia, unspecified Status: Acute Assessment and Plan: * Seems to be an iron deficient anemia, with a possible component of anemia of chronic disease * Anemia labs iron 32, TIBC 376, % sat 9, Ferritin 18.10, B12 622 * Continue home iron * H/H stable at 8.9/30.8 * Continue to trend labs * Transfuse if indicated * Follow Dr. Munoz for cancer treatments Plan Get a nocturnal hypoxia O2 assessment She also needs a home O2 evaluation upon discharge Time Spent With Patient Time with patient: Greater than 35 minutes Subjective Date/time seen: 02/15/22 1015 Interval history: 02/15/22 1015
[2022-02-15] MEDS: amLODIPine BESYLATE 5 MG TABLET PO (10:21)
[2022-02-15] MEDS: calcium polycarbophiL 625 MG TABLET PO ×2 (10:22→16:41)
[2022-02-15] MEDS: ENOXAPARIN 30 MG/0.3 ML SYRINGE SUB-Q (10:22)
[2022-02-15] MEDS: FUROSEMIDE INJ 40 MG/4 ML VIAL IV PUSH ×2 (10:22→16:41)
[2022-02-15] MEDS: HYDROXYCHLOROQUINE SULFATE 200 MG TABLET 400 MG PO (10:22)
[2022-02-15] MEDS: DICLOFENAC SODIUM 1% 100 GM GEL (*BKC) 1 APPLIC TOPICAL ×2 (10:22→16:41)
[2022-02-15] MEDS: DOCUSATE SODIUM 100 MG CAPSULE PO (10:22)
[2022-02-15] MEDS: MEMANTINE HCL XR 28 MG CAP PO (10:23)
[2022-02-15] MEDS: lisinopriL 20 MG TABLET PO (10:23)
[2022-02-15] MEDS: POLYSACCHARIDE IRON COMPLEX 150 MG CAPSULE PO ×2 (10:23→16:41)
[2022-02-15] MEDS: PANTOPRAZOLE 40 MG TABLET PO ×2 (10:23→16:41)
--- NOTE | 2022-02-15 13:13 | PM.PNCARD ---
Progress Note: A&P Assessment and Plan (1) CHF (congestive heart failure): Code(s): I50.9 - Heart failure, unspecified Status: Acute (2) Aortic valve stenosis: Code(s): I35.0 - Nonrheumatic aortic (valve) stenosis Status: Acute (3) Hypertension: Code(s): I10 - Essential (primary) hypertension Status: Acute (4) Lung cancer: Code(s): C34.90 - Malignant neoplasm of unspecified part of unspecified bronchus or lung Status: Acute (5) Acute respiratory failure with hypoxia: Code(s): J96.01 - Acute respiratory failure with hypoxia Status: Acute Plan Our echocardiogram here shows moderate , which is consistent with the findings from her recent echo from 09/2021 from [place]. Would continue diuresis until patient is euvolemic, and then transition to oral diuretics. Patient can follow-up with us in our [facility]. Subjective Date/time seen: 02/15/22 13:13 Interval history: Patient seen and examined this morning. Sitting up in chair and eating breakfast. Feels better. Echo reviewed with the patient - our echocardiogram findings appear unchanged compared to her recent echo from [place] from September 2021 with findings of moderate . Review of Systems Review of Systems: All systems reviewed & are unremarkable except as noted in HPI and below (subjective) Exam Const: General: comfortable and no acute distress HENMT: Mouth: Yes moist mucous membranes Resp: Effort & Inspection: normal respiratory effort Auscultation: diminished lung sounds Cardio: Rate: regular rate Rhythm: regular rhythm Other: 3/6 systolic murmur Skin: General skin exam: normal color Neuro: Speech: normal speech Extrem: General: no edema Psych: Mental Status: mental status grossly normal Objective Data Vital Signs Vital Signs: Vital Signs - 24 hr 02/14/22 16:11 02/14/22 16:00 02/14/22 21:03 Temperature 36.7 C 36.7 C Pulse Rate 75 74 77 Respiratory Rate 16 16 Blood Pressure 129/53 L 146/58 H Pulse Oximetry 98 97 Oxygen Delivery Oxygen Flow Rate 02/14/22 20:00 02/14/22 20:00 02/15/22 00:00 Temperature Pulse Rate 77 69 76 Respiratory Rate 16 Blood Pressure Pulse Oximetry 97 Oxygen Delivery Nasal Cannula Oxygen Flow Rate 3 02/15/22 04:00 02/15/22 06:34 02/15/22 08:00 Temperature 36.6 C Pulse Rate 78 77 70 Respiratory Rate 14 Blood Pressure 137/60 Pulse Oximetry 97 Oxygen Delivery Oxygen Flow Rate 02/15/22 10:18 02/15/22 10:15 02/15/22 12:00 Temperature Pulse Rate 80 76 Respiratory Rate 20 Blood Pressure 116/58 L Pulse Oximetry 97 98 Oxygen Delivery Nasal Cannula Oxygen Flow Rate 3 Intake/Output Intake/Output: Intake & Output 02/12/22 02/13/22 02/14/22 02/15/22 23:59 23:59 23:59 23:59 Intake Total 780 730 440 Output Total 600 1450 300 Balance 180 -720 140 Meds/Results Medications: Active Medications Generic Name Dose Route Start Last Admin Trade Name Freq PRN Reason Stop Dose Admin Acetaminophen 1,000 mg 02/14/22 15:49 02/14/22 16:30 Acetaminophen 500 Mg Tablet PO 1,000 mg Q6H PRN Administration Mild Pain (1-3) or Fever Amlodipine Besylate 5 mg 02/14/22 09:00 02/15/22 10:21 Amlodipine Besylate 5 Mg Tablet PO 5 mg DAILY BASSEM Administration Calcium Carbonate 500 mg 02/14/22 09:00 02/15/22 10:22 Calcium/Vitamin D 500 Mg Tablet PO 500 mg DAILY BASSEM Administration Calcium Polycarbophil 625 mg 02/14/22 09:00 02/15/22 10:22 Calcium Polycarbophil 625 Mg Tablet PO 625 mg BID BASSEM Administration Diclofenac Sodium 1 applic 02/14/22 09:00 02/15/22 10:22 Diclofenac Sodium 1% 100 Gm Gel (*Bkc) TOPICAL 1 applic BID BASSEM Administration Docusate Sodium 100 mg 02/14/22 09:00 02/15/22 10:22 Docusate Sodium 100 Mg Capsule PO 100 mg DAILY BASSEM Administration Enoxaparin Sodium 30 mg 02/14/22 09:00 02/15/22 10:2
[2022-02-15] MEDS: GABAPENTIN 100 MG CAPSULE PO ×2 (13:36→16:41)
[2022-02-15] MEDS: MELATONIN 5 MG TABLET PO (20:14)
[2022-02-16] VITALS (9 sets, daily range): BP systolic 107–125; BP diastolic 45–64; PULSE 62–98; RESP 16–18; TEMP 36–36.7; O2SAT 87–100
[2022-02-16 03:54] LABS: Basophils Absolute Auto 0.1 K/mm3 (0.0-0.1); Basophils Percent Auto 0.8 % (0.2-1.2); Eosinophils Absolute Auto 0.3 K/mm3 (0-0.3); Eosinophils Percent Auto 4.3 % (0-4.4); Hematocrit 31.2 % (37.0-47.0); Immature Granulocyte Absolute 0.01 K/mm3 (0.00-0.031); Immature Granulocyte Percent A 0.1 % (0-0.5); Lymphocytes Absolute Auto 1.02 K/mm3 (0.9-3.2); Lymphocytes Percent Auto 14.3 % (18.3-44.2); Mean Corpuscular HGB Conc 28.8 g/dl (32-36); Mean Corpuscular Hemoglobin 25.4 pg (26-34); Mean Corpuscular Volume 88.1 fl (80-100); Mean Platelet Volume 10.1 fl (7.4-10.4); Monocytes Absolute Auto 0.8 K/mm3 (0.1-0.6); Monocytes Percent Auto 11.5 % (2.6-8.5); Neutrophils Absolute Auto 4.9 K/mm3 (1.3-6.7); Platelet Count Result 293 k/mm3 (150-375); Red Blood Count 3.54 M/mm3 (4.2-5.4); Red Cell Distribution Width 21.6 % (11.5-14.5); White Blood Count 7.1 K/mm3 (4.5-10.0)
[2022-02-16 04:06] LABS: Alanine Aminotransferase 13 U/L (6-35); Albumin Level 2.9 g/dL (3.5-5.1); Alkaline Phosphatase 82 U/L (38-126); Anion Gap 8 mmol/L (8-16); Aspartate Amino Transferase 22 U/L (14-36); Bilirubin,Total 0.2 mg/dL (0.2-1.3); Blood Urea Nitrogen 26 mg/dL (7-17); Calcium 7.4 mg/dL (8.4-10.2); Carbon Dioxide 36 mmol/L (22-30); Chloride 95 mmol/L (98-107); Estimated CRCL calculation 31 ml/min; Estimated Glomerular Filt Rate 43; Glucose 91 mg/dL (65-110); Magnesium 1.8 mg/dL (1.6-2.3); Potassium 3.4 mmol/L (3.4-5.0); Sodium 139 mmol/L (137-145)
[2022-02-16 04:14] LABS: Anisocytosis 1+ (NORMAL); Hypochromasia 2+ (NORMAL); Ovalocytes 1+ (NORMAL); Platelet Estimate Adequate (Adequate); Schistocytes None Seen (NORMAL); Stomatocytes 1+ (NORMAL)
[2022-02-16] MEDS: LEVOTHYROXINE SODIUM 125 MCG TABLET PO (05:44)
[2022-02-16] MEDS: CENTRAL LINE FLUSH 10 ML IV PUSH ×2 (05:44→16:45)
[2022-02-16] MEDS: calcium polycarbophiL 625 MG TABLET PO (08:45)
[2022-02-16] MEDS: GABAPENTIN 100 MG CAPSULE PO ×2 (08:45→12:50)
[2022-02-16] MEDS: DOCUSATE SODIUM 100 MG CAPSULE PO (08:46)
[2022-02-16] MEDS: amLODIPine BESYLATE 5 MG TABLET PO (08:46)
[2022-02-16] MEDS: PANTOPRAZOLE 40 MG TABLET PO (08:46)
[2022-02-16] MEDS: HYDROXYCHLOROQUINE SULFATE 200 MG TABLET 400 MG PO (08:46)
[2022-02-16] MEDS: lisinopriL 20 MG TABLET PO (08:46)
[2022-02-16] MEDS: ENOXAPARIN 30 MG/0.3 ML SYRINGE SUB-Q (08:48)
[2022-02-16] MEDS: POLYSACCHARIDE IRON COMPLEX 150 MG CAPSULE PO (08:50)
[2022-02-16] MEDS: MEMANTINE HCL XR 28 MG CAP PO (08:50)
[2022-02-16] MEDS: DICLOFENAC SODIUM 1% 100 GM GEL (*BKC) 1 APPLIC TOPICAL (08:52)
[2022-02-16] MEDS: FUROSEMIDE 20 MG TABLET PO (09:07)
--- NOTE | 2022-02-16 11:22 | HOMEO2EVAL ---
Evaluation was performed at [facility] Home Oxygen Evaluation RC: Home Oxygen (O2) Evaluation Start: 02/16/22 08:39 Freq: ONCE Status: Active Protocol: RPE Activity Type Activity Date Activity User E-sign Co-sign Detail Recorded Client Recorded Date Recorded By Document 02/16/22 10:30 PK [email or web address] 02/16/22 11:21 PKH Document 02/16/22 10:33 [email or web address] 02/16/22 11:21 PKH Document 02/16/22 10:35 [email or web address] 02/16/22 11:21 PKH Document 02/16/22 10:50 [email or web address] 02/16/22 11:21 PKH Document 02/16/22 10:55 PK [email or web address] 02/16/22 11:21 PKH 02/16/22 02/16/22 02/16/22 10:30 10:33 10:35 Home O2 Evaluation [Oxygen] -Test Phase Resting Resting Resting -Oxygen Delivery Room Air Nasal Cannula Nasal Cannula -Oxygen Flow Rate (L/min) 1 2 [Pulse Oximetry] -Pulse Oximetry (90-100 %) 87 L 88 L 92 [Pulse Rate] -Pulse Rate (60-100 beats/min) 73 72 72 [Evaluation] -Activity Tolerance [Exercise] -Ambulation Distance (feet) -Ambulation Distance (meters) [Comments] -Home Oxygen Evaluation Comments [Charges] -Treatment Charges O2 Evaluation - Inpatient 02/16/22 02/16/22 10:50 10:55 Home O2 Evaluation [Oxygen] -Test Phase Exercise Resting -Oxygen Delivery Nasal Cannula Nasal Cannula -Oxygen Flow Rate (L/min) 2 2 [Pulse Oximetry] -Pulse Oximetry (90-100 %) 91 92 [Pulse Rate] -Pulse Rate (60-100 beats/min) 82 84 [Evaluation] -Activity Tolerance Good [Exercise] -Ambulation Distance (feet) 300 -Ambulation Distance (meters) 91.43 [Comments] -Home Oxygen Evaluation Comments Patient requires Home O2 at 2lpm with rest and activity. [facility]. [Charges] -Treatment Charges
--- NOTE | 2022-02-16 11:25 | PCRCNOTE ---
Home O2 complete. Patient requires 2lpm with rest and activity. Patient has Home O2 with [facility] [phone]. RN notified.
--- NOTE | 2022-02-16 11:28 | PM.PNCARD ---
Progress Note: A&P Assessment and Plan (1) CHF (congestive heart failure): Code(s): I50.9 - Heart failure, unspecified Status: Acute (2) Renal insufficiency: Code(s): N28.9 - Disorder of kidney and ureter, unspecified Status: Acute (3) Hypertension: Code(s): I10 - Essential (primary) hypertension Status: Acute (4) Aortic valve stenosis: Code(s): I35.0 - Nonrheumatic aortic (valve) stenosis Status: Acute (5) Dementia: Code(s): F03.90 - Unspecified dementia, unspecified severity, without behavioral disturbance, psychotic disturbance, mood disturbance, and anxiety Status: Acute (6) Lung cancer: Code(s): C34.90 - Malignant neoplasm of unspecified part of unspecified bronchus or lung Status: Acute (7) Acute respiratory failure with hypoxia: Code(s): J96.01 - Acute respiratory failure with hypoxia Status: Acute Plan Our echocardiogram here shows moderate , which is consistent with the findings from her recent echo from 09/2021 from [place]. Patient now on oral Lasix, would assess her response to oral diuretic. Would keep patient net even to slightly net negative. Will have patient follow up with us in clinic. Subjective Date/time seen: 02/16/22 11:28 Interval history: Patient seen and examined this morning. Doing well, feels better. Lower extremity edema significantly improved. Breathing much better. No chest pain. Review of Systems Review of Systems: All systems reviewed & are unremarkable except as noted in HPI and below (subjective) Exam Const: General: comfortable and no acute distress HENMT: Mouth: Yes moist mucous membranes Neck: Neck: no JVD Resp: Effort & Inspection: normal respiratory effort Auscultation: clear to auscultation bilaterally Cardio: Rate: regular rate Rhythm: regular rhythm Other: 3/6 systolic murmur Skin: General skin exam: normal color Neuro: Speech: normal speech Extrem: General: edema Other: Patient wearing compression stockings. Psych: Mental Status: mental status grossly normal Objective Data Vital Signs Vital Signs: Vital Signs - 24 hr 02/15/22 12:00 02/15/22 14:00 02/15/22 16:00 Temperature 36.5 C Pulse Rate 76 70 68 Respiratory Rate 15 Blood Pressure 132/58 L Pulse Oximetry 100 Oxygen Delivery Oxygen Flow Rate 02/15/22 22:59 02/15/22 23:19 02/15/22 20:00 Temperature 36.4 C Pulse Rate 66 Respiratory Rate 16 Blood Pressure 117/58 L Pulse Oximetry 94 100 100 Oxygen Delivery Room Air Nasal Cannula Oxygen Flow Rate 3 02/15/22 20:00 02/16/22 00:00 02/16/22 04:00 Temperature Pulse Rate 73 65 77 Respiratory Rate Blood Pressure Pulse Oximetry Oxygen Delivery Oxygen Flow Rate 02/16/22 06:32 02/16/22 10:30 02/16/22 10:33 Temperature 36.7 C Pulse Rate 98 73 72 Respiratory Rate 16 Blood Pressure 125/64 Pulse Oximetry 91 87 L 88 L Oxygen Delivery Room Air Nasal Cannula Oxygen Flow Rate 1 02/16/22 10:35 02/16/22 10:50 02/16/22 10:55 Temperature Pulse Rate 72 82 84 Respiratory Rate Blood Pressure Pulse Oximetry 92 91 92 Oxygen Delivery Nasal Cannula Nasal Cannula Nasal Cannula Oxygen Flow Rate 2 2 2 Intake/Output Intake/Output: Intake & Output 02/13/22 02/14/22 02/15/22 02/16/22 23:59 23:59 23:59 23:59 Intake Total 161 090 3152 218 Output Total 600 1450 2400 Balance 180 720 1180 218 Meds/Results Medications: Active Medications Generic Name Dose Route Start Last Admin Trade Name Freq PRN Reason Stop Dose Admin Acetaminophen 1,000 mg 02/14/22 15:49 02/14/22 16:30 Acetaminophen 500 Mg Tablet PO 1,000 mg Q6H PRN Administration Mild Pain (1-3) or Fever Amlodipine Besylate 5 mg 02/14/22 09:00 02/16/22 08:46 Amlodipine Besylate 5 Mg Tablet PO 5 mg DAILY BASSEM Administration Calcium Carbonate 500 mg 02/14/22 09:00 02/16/22 08:45
--- NOTE | 2022-02-16 13:49 | PM.DS ---
DS: Admitting Diagnosis Discharge Date 02/16/2022 Admitting Diagnosis CHF exacerbation DS: Discharge Diagnosis Discharge Diagnosis (1) CHF (congestive heart failure): Code(s): I50.9 - Heart failure, unspecified Status: Acute Assessment and Plan: Patient presented with increased swelling of lower extremities and increased shortness of breath. BNP 2200. CXR showed cardiomegaly and small effusions. She was seen in consultation by Cardiology. She had symptomatic improvement with IV diuresis and was able to transition back to p.o. Lasix 20 mg b.i.d.. Echo was evaluated with improvement in EF to 60-65% with grade 1 diastolic dysfunction. CHF education provided. Continue natalie hose. (2) Lung cancer: Code(s): C34.90 - Malignant neoplasm of unspecified part of unspecified bronchus or lung Status: Acute Assessment and Plan: Patient with history of metastatic non-small cell lung cancer on Keytruda. Patient was seen in consultation by her oncologist, Dr. Munoz. She will follow-up as an outpatient next week to hopefully resume chemotherapy. (3) Hypoxia: Code(s): R09.02 - Hypoxemia Status: Acute Assessment and Plan: Patient recently prescribed outpatient oxygen by Oncology due to lung cancer. Patient had been on 3 L per nasal cannula. Hypoxia worsened during admission, likely due to volume overload, lung cancer, atelectasis. Improved with diuresis. She was seen in consultation by pulmonology. O2 assessment performed while on room air and patient had to 152 minutes of desaturations <88%. She will continue to use nocturnal oxygen at 3 L and will have a repeat nocturnal O2 assessment as an outpatient following pulmonology follow-up. Home O2 eval performed on 02/16, patient requires 2 L supplemental oxygen with rest and with activity. Outpatient follow-up with pulmonology in 4 weeks. (4) Renal insufficiency: Code(s): N28.9 - Disorder of kidney and ureter, unspecified Status: Acute Assessment and Plan: Creatinine 1 month ago was 0.8-0.9. Creatinine now ranging 1.2-1.3. Likely due to need for IV diuresis. This may be the patient's new baseline. Renal ultrasound was unremarkable. No hydronephrosis. She will continue with low-dose furosemide 20 mg b.i.d. Repeat BMP in 1 week for further monitoring of kidney function. (5) Sarcoidosis: Code(s): D86.9 - Sarcoidosis, unspecified Status: Acute Assessment and Plan: No acute issues. Continue hydroxychloroquine (6) Aortic valve stenosis: Code(s): I35.0 - Nonrheumatic aortic (valve) stenosis Status: Acute Assessment and Plan: Moderate aortic stenosis noted on echo, unchanged from prior echo in September 2021. Patient seen by Cardiology. (7) Dementia: Code(s): F03.90 - Unspecified dementia, unspecified severity, without behavioral disturbance, psychotic disturbance, mood disturbance, and anxiety Status: Acute Assessment and Plan: Unchanged. Continue memantine (8) Hypothyroidism: Code(s): E03.9 - Hypothyroidism, unspecified Status: Acute Assessment and Plan: TSH within normal limits. Continue levothyroxine (9) Anemia: Code(s): D64.9 - Anemia, unspecified Status: Acute Assessment and Plan: Seems to be an iron deficient anemia, with a possible component of anemia of chronic disease. Continue p.o. iron supplementation. DS: Summary Hospital Course Hospital Course: date of admission: 02/13/2022 date of discharge: 02/16/2022 Negin Pastrana is an 81-year-old female with a history of aortic valve stenosis, right breast cancer, metastatic non-small cell lung cancer onset fall 2020 maintained on Keytruda recently started on home oxygen therapy, hypertension, hypothyroidism, dementia, sarcoidosis, spinal stenosis, C diff infection who presented to the emergency department on 02/13/2022 from her [facility]
[2022-02-16] MEDS: HEPARIN SODIUM LOCK FLUSH 500 UNITS/5 ML SYRINGE IV PUSH (16:45)
[2022-02-17 17:15] LABS: Osmolality, Urine 436 mOsm/kg (50-1200)
== END 2022-02-16 17:22 | DRG 291 ==
LOC: ANHED 14:53 → ANH2MED 15:13
PROVIDERS: Nurse Practitioner; Physician Assistant; Admitting Provider Chiropractor; Emergency Provider Emergency Medicine; Visit Provider Internal Medicine
DX: I11.0 Hypertensive heart disease with heart failure (principal); I50.33 Acute on chronic diastolic (congestive) heart failure; C34.90 Malignant neoplasm of unspecified part of unspecified bronchus or lung; R09.02 Hypoxemia; N28.9 Disorder of kidney and ureter, unspecified; D86.9 Sarcoidosis, unspecified; D50.9 Iron deficiency anemia, unspecified; D63.8 Anemia in other chronic diseases classified elsewhere; E03.9 Hypothyroidism, unspecified; F03.90 Unspecified dementia, unspecified severity, without behavioral disturbance, psychotic disturbance, mood disturbance, and anxiety; I35.0 Nonrheumatic aortic (valve) stenosis; K21.9 Gastro-esophageal reflux disease without esophagitis; M48.00 Spinal stenosis, site unspecified; R91.1 Solitary pulmonary nodule; Z85.3 Personal history of malignant neoplasm of breast; Z79.620 Long term (current) use of immunosuppressive biologic; Z79.899 Other long term (current) drug therapy; Z92.21 Personal history of antineoplastic chemotherapy; Z86.19 Personal history of other infectious and parasitic diseases; Z90.49 Acquired absence of other specified parts of digestive tract; Z96.651 Presence of right artificial knee joint; Z96.642 Presence of left artificial hip joint; Z98.49 Cataract extraction status, unspecified eye; Z90.710 Acquired absence of both cervix and uterus; Z66 Do not resuscitate; Z77.22 Contact with and (suspected) exposure to environmental tobacco smoke (acute) (chronic); Z28.21 Immunization not carried out because of patient refusal
CPT/HCPCS: 36415; 71045; 71275; 76775; 80053; 82570; 83605; 83735; 83880; 83935; 84145; 84300; 84443; 84484; 84540; 85025; 85610; 85730; 86140; 87040; 93005; 93306; 93970; 94618; 94762; 99285; A9270; G0378; J0456; J0696; J1642; J1650; J1940; Q9967

== ENCOUNTER 2022-03-21 15:17 | Inpatient (IN) | payer MEDICARE, BC, SELFPAY ==
[2022-03-21] VITALS (16 sets, daily range): BP systolic 124–137; BP diastolic 41–63; PULSE 58–72; RESP 11–31; TEMP 36.4–36.5; O2SAT 94–100; BMI 20.6
--- NOTE | ~2022-03-21 | CT_ITS ---
EXAMINATION: CT brain wo con INDICATION: Altered mental status COMPARISON: None TECHNIQUE: Standard unenhanced head CT. The dose-length product (DLP) was 605.33 mGy-cm. The mA was a djusted according to patient size. Iterative reconstruction technique was employed. FINDINGS: There is no acute intraparenchymal hemorrhage. No evidence of mass lesion. No evidence of a cute infarction. There is mild periventricular and subcortical hypodensity probably related to small vessel ischemic disease. There is mild prominence of the sulci and ventricles related to cerebral atr ophy. Intracranial calcified cerebral atherosclerosis is noted. There are no extra-axial collections. There is no mass effect or midline shift. Changes in the globes are likely from ocular lens surgery. The visualized sinuses and mastoid air cells are well aerated. IMPRESSION: 1. No acute intracranial abnormality. 2. Age related findings. Reviewed, dictated and finalized at location F. TUTOR
--- NOTE | ~2022-03-21 | CT_ITS ---
EXAMINATION: CT chest abdomen pelvis wo con DATE: 03/23/2022 10:26 INDICATION: Acute kidney injury. Metastatic lung cancer. TECHNIQUE: Computed tomography (CT) of the chest, abdomen, and pelvis was performed without intraveno us contrast. Automated exposure control and iterative reconstruction technique were employed. The dos e-length product was 694.11 mGy-cm. COMPARISON: Chest CT 02/13/2022 FINDINGS: CHEST CT: There are small pleural effusions with pleural thickening on the right. There are airspace opacities in right middle lobe and right lower lobe abutting the pleura, consistent with rounded atelectasis. T here is smooth septal thickening in the lungs, consistent mild pulmonary edema. There is a 9 mm nodul e in right lung upper lobe. There is dependent atelectasis in left lung. Cardiomegaly is noted. There are coronary artery calcifications. There are calcifications of aortic valve. No pericardial effusio n. There is a left internal jugular port with tip at superior cavoatrial junction. There is severe th oracic spondylosis. There is a chronic compression fracture of T2. ABDOMEN/PELVIS CT: The liver, spleen, pancreas, adrenal glands, and kidneys are normal. There is no urolithiasis. The ga llbladder is absent. There are no dilated loops of bowel. There is diverticulosis of the colon withou t evidence of diverticulitis. The appendix is not visualized. There are no pathologically enlarged ly mph nodes. There is no free intraperitoneal fluid. There is a total left hip arthroplasty. There is s evere lumbar spondylosis. IMPRESSION: 1. Stable 9 mm nodule in right lung upper lobe, which is indeterminate for malignancy. 2. Small pleural effusions with pleural thickening on the right interval worsening on the left. 3. Mild pulmonary edema. Reviewed, dictated and finalized at location A. CTOR OPERATING ROOM IMPRESSION: 1. Stable 9 mm nodule in right lung upper lobe, which is indeterminate for lloyd gnancy. 2. Small pleural effusions with pleural thickening on the right interval worsen ing on the left. 3. Mild pulmonary edema.
--- NOTE | ~2022-03-21 | US_ITS ---
EXAMINATION: US renal BI DATE: 03/22/2022 12:26 INDICATION: Worsening kidney function. TECHNIQUE: Multiple ultrasound grayscale images of the kidneys were obtained. COMPARISON: Ultrasound kidneys 02/14/2022, chest CT 02/13/2022 FINDINGS: The right kidney measures 10.3 x 3.9 x 5.6 cm. The left kidney measures 10.2 x 5.6 x 5.0 cm. The kidn eys demonstrate normal parenchymal echogenicity. There is no hydronephrosis. The bladder is normal. IMPRESSION: 1. Normal kidneys. No hydronephrosis. Reviewed, dictated and finalized at location A. AGING ARCHITECT
--- NOTE | ~2022-03-21 | XR_ITS ---
EXAMINATION: XR chest 2V DATE: 03/21/2022 15:56 INDICATION: Right lung tumor presenting with weakness, loss of appetite and inability to swallow TECHNIQUE: frontal and lateral views of the chest were obtained. COMPARISON: Chest radiograph dated 02/14/2022 FINDINGS: Left internal jugular central venous port catheter with distal tip near the superior cavoatrial junct ion. Persistent opacities at the bilateral lower lung zones, right greater than left. On the right th is includes a masslike retrocardiac opacity medial right lower lung zone which on prior CT appears mo st likely to represent a region of round atelectasis versus residual scarring related to treatment of a reported prior lung cancer. Small right and tiny left pleural effusions the latter evident only is minimal blunting at the posterior sulcus on the lateral projection. Linear opacity right upper lung zone which appears to correspond to a region of atelectasis/scarring with associated nodular opacity better appreciated on the prior CT. Mild biapical pleural-parenchymal scarring. No pneumothorax. Card iomegaly. Moderate thoracic and upper lumbar spondylosis. IMPRESSION: 1. Masslike opacity at the medial right lung base which on prior CT appears to correspond to a region of round atelectasis versus fibrosis related to prior treated lung cancer. 2. Additional less well-defined opacities at the bilateral lower lung zones which could represent ate lectasis, pulmonary edema and/or pneumonia. 3. Small right and tiny left pleural effusions. 4. Cardiomegaly. Reviewed, dictated and finalized at location B. OLL CLERK IMPRESSION: 1. Masslike opacity at the medial right lung base which on prior CT appears to correspond to a region of round atelectasis versus fibrosis related to prior tr eated lung cancer. 2. Additional less well-defined opacities at the bilateral lower lung zones whi ch could represent atelectasis, pulmonary edema and/or pneumonia. 3. Small right and tiny left pleural effusions. 4. Cardiomegaly.
--- NOTE | 2022-03-21 15:26 | ECG_ITS ---
Measurements Intervals [place] Rate: 61 P: 11 WA: 135 QRS: 9 QRSD: 109 T: 30 QT: 420 QTc: 425 Interpretive Statements SINUS RHYTHM VOLTAGE CRITERIA FOR LVH BASELINE ARTIFACT- I, II, AVR, AVL, AVF, V1-V6 BORDERLINE ECG COMPARED TO ECG 02/13/2022 14:09:06 NO SIGNIFICANT CHANGES Electronically Signed On 03-21-2022 16:32:46 WORK[employer] COMPENSATION CLAIMS ANALYST by Prieto Young D.O.
[2022-03-21 15:42] LABS: Basophils Percent Auto 0.5 % (0.2-1.2); Hematocrit 33.8 % (37.0-47.0); Hemoglobin 10.2 g/dL (12.0-15.0); Immature Granulocyte Absolute 0.04 K/mm3 (0.00-0.031); Immature Granulocyte Percent A 0.5 % (0-0.5); Lymphocytes Absolute Auto 0.47 K/mm3 (0.9-3.2); Lymphocytes Percent Auto 6.2 % (18.3-44.2); Mean Corpuscular HGB Conc 30.2 g/dl (32-36); Mean Corpuscular Hemoglobin 25.9 pg (26-34); Mean Corpuscular Volume 85.8 fl (80-100); Monocytes Absolute Auto 0.5 K/mm3 (0.1-0.6); Monocytes Percent Auto 7.1 % (2.6-8.5); Neutrophils Absolute Auto 6.5 K/mm3 (1.3-6.7); Neutrophils Percent Auto 85.7 % (45.5-73.1); Platelet Count Result 267 k/mm3 (150-375); Red Blood Count 3.94 M/mm3 (4.2-5.4); White Blood Count 7.6 K/mm3 (4.5-10.0)
[2022-03-21 15:55] LABS: Alanine Aminotransferase 18 U/L (6-35); Albumin Level 3.5 g/dL (3.5-5.1); Alkaline Phosphatase 135 U/L (38-126); Anion Gap 14 mmol/L (8-16); Aspartate Amino Transferase 29 U/L (14-36); Bilirubin,Total 0.4 mg/dL (0.2-1.3); Blood Urea Nitrogen 72 mg/dL (7-17); Calcium 8.8 mg/dL (8.4-10.2); Carbon Dioxide 22 mmol/L (22-30); Chloride 103 mmol/L (98-107); Estimated CRCL calculation 5 ml/min; Estimated Glomerular Filt Rate 6; Glucose 74 mg/dL (65-110); Potassium 4.6 mmol/L (3.4-5.0); Sodium 139 mmol/L (137-145)
--- NOTE | 2022-03-21 18:01 | ED.WEAKNESS ---
HPI - Weakness General Chief complaint: Shortness of Breath/Dyspnea Stated complaint: SOB Time Seen by Provider: 03/21/22 17:45 History of Present Illness HPI Narrative: Pt presents with worsening generalized weakness and lethargy and difficulty swallowing for several days. Pt has stage 4 lung ca and has some sob that is a little worse. Son says she is not eating or drinking because they think she is having trouble swallowing. Pt denies fever. Related Data Home Medications Medication Instructions Recorded Confirmed amlodipine 5 mg-benazepril 20 mg 1 cap PO DAILY 02/13/22 02/24/22 capsule calcium carbonate 600 mg-vitamin 1 tablet PO DAILY 02/13/22 02/24/22 D3 10 mcg (400 unit) tablet (Calcium with Vitamin D) calcium polycarbophil 625 mg 625 mg PO BID 02/13/22 02/24/22 tablet (Fiber-Lax) cyanocobalamin (vitamin B-12) 1,000 mcg subcut MONTHLY 02/13/22 02/24/22 1,000 mcg/mL injection solution diclofenac sodium 1.6 % topical 1 ea topical BID 02/13/22 02/24/22 gel packet diclofenac sodium 75 mg 75 mg PO BID 02/13/22 02/24/22 tablet,delayed release docusate sodium 100 mg capsule 100 mg PO DAILY 02/13/22 02/24/22 furosemide 40 mg tablet 20 mg PO BID 02/13/22 02/24/22 hydroxychloroquine 200 mg tablet 400 mg PO DAILY 02/13/22 02/24/22 levothyroxine 125 mcg tablet 125 mcg PO DAILY 02/13/22 02/24/22 memantine 28 mg capsule 28 mg PO DAILY 02/13/22 02/24/22 sprinkle,extended release 24hr omeprazole 40 mg capsule,delayed 40 mg PO DAILY 02/13/22 02/24/22 release polyethylene glycol 3350 17 17 g PO DAILY PRN Constipation 02/13/22 02/24/22 gram/dose oral powder (Miralax) polysaccharide iron complex 150 mg 150 mg PO BID 02/13/22 02/24/22 iron capsule (iFerex 150) Allergies Allergy/AdvReac Type Severity Reaction Status Date / Time Tetracyclines Allergy Unknown Verified 03/21/22 19:31 Review of Systems Review of Systems: All systems reviewed & are unremarkable except as noted in HPI and below PMFSH Past Medical History Medical History Aortic valve stenosis Cancer of right breast Status post lumpectomy and radiation. Clostridium difficile infection Dementia Gastroesophageal reflux disease Hypertension Hypothyroidism Lung cancer Acute 2D infusions per Dr. Munoz. Lymphedema of right arm Sarcoidosis Spinal stenosis Surgical History Surgical History History of appendectomy History of arthroplasty of right knee History of arthroscopy of right shoulder History of blepharoplasty History of cataract extraction History of cholecystectomy History of hysterectomy History of lumpectomy of right breast With lymph node dissection. 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 Code status: Do not resuscitate. Smoking status: Never smoker Alcohol intake: never Substance use: never Substance use type: does not use Additional living arrangements comments: From [place], [place]. She has 5 children. Resides in assisted living at [facility]. Spiritual care concerns: No Exam Const: General: no acute distress Nutritional Appearance: well nourished Orientation/consciousness: patient oriented x3 Limitations: no limitations HENMT: Mouth: Yes dry mucous membranes Throat: posterior oropharynx normal Eyes: Conjunctivae: conjunctivae normal EOM: EOMs intact bilaterally Neck: Neck: normal visual inspection Chest: Chest palpation & inspection: normal inspection of the chest Resp: Effort & Inspection: normal respiratory effort Auscultation: clear to auscultation bilaterally Cardio: Rate: regula
[2022-03-21] MEDS: SODIUM CHLORIDE 0.9% IV 1,000 ML 999 ML IV CONT (19:22)
--- NOTE | 2022-03-21 19:30 | PM.IMHP ---
H&P: HPI History of Present Illness Date/Time: 03/21/22 19:30 Chief Complaint: Multiple complaints. Narrative: This is a very pleasant 81-year-old female with dementia, hypertension, aortic valve stenosis, sarcoidosis, iron deficiency anemia, hypothyroidism, sarcoidosis, C diff, GERD, breast cancer, and lung cancer who presented to the emergency department for evaluation of multiple complaints. She is known to myself and the hospitalist service from an admission about 1 month ago at which time she presented with increasing lower extremity edema and findings of congestive heart failure. Echocardiogram at that time showed an EF of 60 to 65% with grade 1 diastolic dysfunction, she was diuresed with improvement, and was discharged back to [place] where she has been for the last several months. During that stay her creatinine ran pretty consistently between 1.2 and 1.30 and that was presumed to be her new baseline. In any event she has not been doing well recently with poor oral intake, occasional difficulties swallowing, decreased appetite, lethargy, and progressive weakness. She was brought in today as she has continued to go downhill. At the time my evaluation she is awake and alert and is a lot less spunky than I remember her though she still has her sense of humor. Her main complaint is that of burning discomfort in her mouth which she states is the reason that she is having difficulty swallowing and eating. She denies overt pain with swallowing and also denies coughing and choking with eating and drinking. No concerns for aspiration. She has not noticed any lesions on her oral mucosa or tongue and she has not noticed any discoloration of the tongue. She occasionally has a mild cough but nothing significant. She has not had fever, chills, or sweats. She denies headache, sinus congestion, and sore throat. She also denies chest pain and pleuritic pain. She has perhaps mild shortness of breath with exertion but that is not new. Appetite has been poor but she denies vomiting. No diarrhea or dysuria. In the emergency department she was found to have stable vital signs. Brain CT showed no acute findings. Chest x-ray continued to show a masslike opacity at the medial right lung base which seems to correspond to a region of round atelectasis versus fibrosis related to prior treated lung cancer in addition to less well-defined opacities at the bilateral lower lung zones which could represent atelectasis, pulmonary edema, and/or pneumonia and small right and tiny left pleural effusions. She was negative for influenza and COVID. Her urine was negative for nitrates, positive for leukocyte esterase, and showed 31 to 50 wbc's with rare squamous cells. Labs showed a BUN and creatinine of 72 and 6.90 respectively and she is being admitted in this setting for further treatment and evaluation. Review of Systems Review of Systems: Twelve systems were reviewed and are negative except for as per HPI. [facility] Past Medical History Medical History (Updated 03/21/22 @ 23:54 by Arlen Kc PA-C) Aortic valve stenosis Cancer of right breast Status post lumpectomy and radiation. Chronic anemia Clostridium difficile infection Dementia Gastroesophageal reflux disease Heart failure with preserved ejection fraction Hypertension Hypothyroidism Lung cancer Patient of Dr. Munoz. Lymphedema of right arm Sarcoidosis Spinal stenosis Surgical History Surgical History History of appendectomy History of arthroplasty of right knee History of arthroscopy of right shoulder History of blepharoplasty History of cataract extraction History of cholecystectomy History of hysterectomy History of lumpectomy of right breast With lymph node dissection. History of total left hip arthroplasty Family History Family History Other Family history unknown Soci
[2022-03-21 19:56] LABS: Influenza A QL RT-PCR Negative (Negative); Influenza B QL RT-PCR Negative (Negative); SARS-CoV-2 RNA PCR Negative
[2022-03-21] MEDS: SODIUM CHLORIDE 0.9% IV 1,000 ML 125 ML IV CONT (20:40)
[2022-03-21 20:43] LABS: Appearance Urine Slightly Cloudy (Clear); Bilirubin Urine Negative (Negative); Blood Urine 1+ (Negative); Color Urine Light Yellow (Yellow); Glucose Urine UA Negative (Negative); Ketones Urine Trace mg/dL (Negative); Leukocyte Esterase Ur 2+ LEU/UL (Negative); Nitrate Urine Negative (Negative); Protein Urine 1+ mg/dL (Negative); Specific Grav Ur 1.015 (1.001-1.035); Urobilinogen Urine 0.2 mg/dL (<2.0)
[2022-03-21 20:51] LABS: Mucus Urine Rare /lpf; Squamous Epithelial Cell Urine Rare /hpf (Few); WBC Urine 31-50 /hpf
[2022-03-21 20:56] LABS: Add Urine Microscopic? YES
[2022-03-22 01:05] VITALS: BMI 23.1
--- NOTE | 2022-03-22 03:42 | ADMGEN ---
This patient, Negin Pastrana, was admitted to [facility] Room 332-01. Patient/family oriented to hospital policies and general routines including ID bracelet, bed and alarms, visiting hours, pain management, procedures, bathroom and other care routines, personal items, smoking policy, room service/diet, and visiting hours. Information on how to activate the Rapid Response Team has been discussed. Patient/Family are encouraged to report perceived risks to care and to ask questions if they do not understand what they are told or what they should do.
[2022-03-22 06:00] VITALS: BP 121/43; PULSE 69; RESP 20; TEMP 36.4; O2SAT 100
[2022-03-22] MEDS: LEVOTHYROXINE SODIUM 125 MCG TABLET PO (06:00)
[2022-03-22] MEDS: SODIUM CHLORIDE 0.9% IV 1,000 ML 125 ML IV CONT (06:00)
[2022-03-22 06:35] LABS: Hematocrit 28.4 % (37.0-47.0); Hemoglobin 8.4 g/dL (12.0-15.0); Mean Corpuscular HGB Conc 29.6 g/dl (32-36); Mean Corpuscular Hemoglobin 25.8 pg (26-34); Mean Corpuscular Volume 87.4 fl (80-100); Mean Platelet Volume 9.9 fl (7.4-10.4); Platelet Count Result 232 k/mm3 (150-375); Red Blood Count 3.25 M/mm3 (4.2-5.4); Red Cell Distribution Width 19.2 % (11.5-14.5); White Blood Count 8.1 K/mm3 (4.5-10.0)
[2022-03-22 06:43] LABS: Alanine Aminotransferase 15 U/L (6-35); Albumin Level 2.9 g/dL (3.5-5.1); Alkaline Phosphatase 103 U/L (38-126); Anion Gap 15 mmol/L (8-16); Aspartate Amino Transferase 27 U/L (14-36); Bilirubin,Total 0.2 mg/dL (0.2-1.3); Blood Urea Nitrogen 62 mg/dL (7-17); Calcium 7.9 mg/dL (8.4-10.2); Carbon Dioxide 20 mmol/L (22-30); Chloride 106 mmol/L (98-107); Estimated CRCL calculation 6 ml/min; Estimated Glomerular Filt Rate 7; Glucose 52 mg/dL (65-110); Potassium 4.2 mmol/L (3.4-5.0); Sodium 141 mmol/L (137-145)
[2022-03-22 07:29] LABS: Procalcitonin 39.2 ng/mL
[2022-03-22 07:56] LABS: Glucose Point of Care 63 mg/dl (65-105)
[2022-03-22] MEDS: DEXTROSE 50% 25 GM/50 ML SYRINGE IV PUSH (08:21)
--- NOTE | 2022-03-22 08:30 | PM.IMPN ---
Progress Note: A&P Assessment and Plan (1) Acute on chronic kidney failure: Code(s): N17.9 - Acute kidney failure, unspecified; N18.9 - Chronic kidney disease, unspecified Status: Acute Assessment and Plan: Creatinine upon arrival was 6.9, currently 6.0 patient's baseline appears to be about 1.2 nephrology on board IV fluid continued at this time urine labs collected Fena Score indicates obstruction Urinary catheter ordered US of the renal does not show any hydronephrosis Continue to trend labs (2) Heart failure with preserved ejection fraction: Code(s): I50.30 - Unspecified diastolic (congestive) heart failure Status: Acute Assessment and Plan: echo from 02/14/2022 showed EF of 60 65% with grade 1 diastolic dysfunction Lasix at home 20mg po bid, continue holding trend urine output Lasix should be restarted when appropriate strict I&Os daily weight Adjust therapy as indicated (3) Chronic anemia: Code(s): D64.9 - Anemia, unspecified Status: Acute Assessment and Plan: H&H currently 8.4/28.4 continue home Iron trend H&H anemia labs in the a.m. adjust supplementation is indicated transfuse if hemoglobin less than 7 (4) Hypertension: Code(s): I10 - Essential (primary) hypertension Status: Acute Assessment and Plan: current blood pressure 112/56 Continue to hold amlodipine and benazepril Trend BP Adjust therapy as indicated (5) Hypothyroidism: Code(s): E03.9 - Hypothyroidism, unspecified Status: Acute Assessment and Plan: continue home levothyroxine 125 mcg p.o. daily (6) Lung cancer: Code(s): C34.90 - Malignant neoplasm of unspecified part of unspecified bronchus or lung Status: Acute Assessment and Plan: Stable at this time Will need to continue her outpatient treatment (7) Hypoglycemia: Code(s): E16.2 - Hypoglycemia, unspecified Status: Acute Assessment and Plan: Glucose was 51 this morning Hypoglycemia protocol started and continued Probably related to not eating Continue to trend labs Adjust therapy as indicated Time Spent With Patient Time with patient: Greater than 35 minutes Subjective Date/time seen: 03/22/22829 Interval history: 03/22/22829 patient was lying in bed when I saw her today. She did state that she was doing okay however she does having hard time swallowing. She denies any chest pain, shortness a breath, fevers, sweats, chills. She did complain of neck pain. She also stated that she is just very tired and weak. I did talk to her son and her daughter for extensive period of time. It was brought to the attention that the patient has been having problems eating over the last couple weeks where she is pocketing food and unable to swallow. patient denies any throat pain however did state that her lips hurt. She also denied any tongue or mouth pain in association. 03/21/22? 19:30 This is a very pleasant 81-year-old female with dementia, hypertension, aortic valve stenosis, sarcoidosis, iron deficiency anemia, hypothyroidism, sarcoidosis, C diff, GERD, breast cancer, and lung cancer who presented to the emergency department for evaluation of multiple complaints. She is known to myself and the hospitalist service from an admission about 1 month ago at which time she presented with increasing lower extremity edema and findings of congestive heart failure. Echocardiogram at that time showed an EF of 60 to 65% with grade 1 diastolic dysfunction, she was diuresed with improvement, and was discharged back to [place] where she has been for the last several months. During that stay her creatinine ran pretty consistently between 1.2 and 1.30 and that was presumed to be her new baseline. In any event she has no
--- NOTE | 2022-03-22 08:30 | P.PNIM_ITS ---
Progress Note: A&P Assessment and Plan (1) Acute on chronic kidney failure: Code(s): N17.9 - Acute kidney failure, unspecified; N18.9 - Chronic kidney disease, unspecified Status: Acute Assessment and Plan: * Creatinine upon arrival was 6.9, currently 6.0 * patient's baseline appears to be about 1.2 * nephrology on board * IV fluid continued at this time * urine labs collected * Fena Score indicates obstruction * Urinary catheter ordered * US of the renal does not show any hydronephrosis * Continue to trend labs (2) Heart failure with preserved ejection fraction: Code(s): I50.30 - Unspecified diastolic (congestive) heart failure Status: Acute Assessment and Plan: * echo from 02/14/2022 showed EF of 60 65% with grade 1 diastolic dysfunction * Lasix at home 20mg po bid, continue holding * trend urine output * Lasix should be restarted when appropriate * strict I&Os * daily weight * Adjust therapy as indicated (3) Chronic anemia: Code(s): D64.9 - Anemia, unspecified Status: Acute Assessment and Plan: * H&H currently 8.4/28.4 * continue home Iron * trend H&H * anemia labs in the a.m. * adjust supplementation is indicated * transfuse if hemoglobin less than 7 (4) Hypertension: Code(s): I10 - Essential (primary) hypertension Status: Acute Assessment and Plan: * current blood pressure 112/56 * Continue to hold amlodipine and benazepril * Trend BP * Adjust therapy as indicated (5) Hypothyroidism: Code(s): E03.9 - Hypothyroidism, unspecified Status: Acute Assessment and Plan: continue home levothyroxine 125 mcg p.o. daily (6) Lung cancer: Code(s): C34.90 - Malignant neoplasm of unspecified part of unspecified bronchus or lung Status: Acute Assessment and Plan: * Stable at this time * Will need to continue her outpatient treatment (7) Hypoglycemia: Code(s): E16.2 - Hypoglycemia, unspecified Status: Acute Assessment and Plan: * Glucose was 51 this morning * Hypoglycemia protocol started and continued * Probably related to not eating * Continue to trend labs * Adjust therapy as indicated Time Spent With Patient Time with patient: Greater than 35 minutes Subjective Date/time seen: 03/22/22 0830 Interval history: 03/22/22 0830 patient was lying in bed when I saw her today. She did state that she was doing okay however she does having hard time swallowing. She denies any chest pain, shortness a breath, fevers, sweats, chills. She did complain of neck pain. She also stated that she is just very tired and weak. I did talk to her son and her daughter for extensive period of time. It was brought to the attention that the patient has been having problems eating over the last couple weeks where she is pocketing food and unable to swallow. patient denies any throat pain however did state that her lips hurt. She also denied any tongue or mouth pain in association. 03/21/22? 19:30 This is a very pleasant 81-year-old female with dementia, hypertension, aortic valve stenosis, sarcoidosis, iron deficiency anemia, hypothyroidism, sarcoidosis, C diff, GERD, breast cancer, and lung cancer who presented to the em
[2022-03-22] MEDS: HYDROXYCHLOROQUINE SULFATE 200 MG TABLET 400 MG PO (08:32)
[2022-03-22] MEDS: HEPARIN SODIUM 5,000 UNITS/ML VIAL 5000 UNITS SUB-Q ×2 (08:32→21:01)
[2022-03-22] MEDS: MEMANTINE HCL XR 7 MG CAP 14 MG PO (08:32)
[2022-03-22] MEDS: DOCUSATE SODIUM 100 MG CAPSULE PO (08:32)
[2022-03-22 08:50] LABS: Glucose Point of Care 60 mg/dl (65-105)
[2022-03-22 08:50] LABS: Glucose Point of Care 135 mg/dl (65-105)
--- NOTE | 2022-03-22 09:08 | PCSTNOTE ---
Please refer to the Bedside Swallow Evaluation in the EMR. Please note, silent aspiration cannot be ruled out at bedside.
[2022-03-22 09:11] LABS: Folic Acid 16.2 ng/mL (2.76->20); Vitamin B12 > 1000.0 pg/mL (239-931)
--- NOTE | 2022-03-22 10:07 | PCPTNOTE ---
PER OT: Spoke with hospitalist about bedrest orders and gave approval for therapy to ambulate pt bathroom.
[2022-03-22 11:40] LABS: Glucose Point of Care 72 mg/dl (65-105)
--- NOTE | 2022-03-22 11:48 | PM.CNNEP ---
Assessment and Plan Assessment and plan (1) SUMI (acute kidney injury): Code(s): N17.9 - Acute kidney failure, unspecified Status: Acute Assessment and Plan: creatinine was running around 1.2 - 1.3mg/dl during February 2022 hospitalization this was felt to be her new baseline given the need for diuretics to maintain her volume status acute insult likely due to combination of poor oral intake coupled with ongoing diuretic use agree with gentle IVF hydration follow-up on renal ultrasound and urine electrolytes follow repeat labs and UOP (2) Hypertension: Code(s): I10 - Essential (primary) hypertension Status: Chronic Assessment and Plan: reasonable control at this time follow trend of hemodynamics (3) Chronic anemia: Code(s): D64.9 - Anemia, unspecified Status: Acute Assessment and Plan: some worsening due to SUMI/ARF suspect some contributions for malignancy as well follow trend of H/H (4) Heart failure with preserved ejection fraction: Qualifiers: Heart failure chronicity: acute on chronic Qualified Code(s): I50.33 - Acute on chronic diastolic (congestive) heart failure Code(s): I50.30 - Unspecified diastolic (congestive) heart failure Status: Acute Assessment and Plan: as noted on last hospitalization about a month ago hence the need for chronic diuretic therapy follow respiratory status closely with IVFs and holding diuretics (5) Lung cancer: Code(s): C34.90 - Malignant neoplasm of unspecified part of unspecified bronchus or lung Status: Acute Assessment and Plan: follow-up with Hem/Onc as outpatient Will continue to follow. History of Present Illness Reason for Consult Consult date: 03/22/22 Reason for consult: acute renal failure (on chronic kidney disease) Chief Complaint Chief complaint: dehydration History of Present Illness Narrative: The patient is an 81-year-old female with a past medical history as outlined below who presented to [facility] Emergency room with multiple complaints. Following her discharge from [facility] on a previous hospitalization, she has been residing her nursing facility. . More recently, she is having issues and problems with poor oral intake swallow difficulties, decreased appetite, lethargy, and progressive weakness. Due to the persistence of the symptoms and the concern that has been somewhat progressing, she came to the ER for assessment. Workup and evaluation emergency room demonstrated the patient to be hemodynamically stable. Imaging studies include a brain CT as well as a chest x-ray did not demonstrate any acute findings other than what has been noted in the past. Influenza as well as COVID-19 testing was negative and her urinalysis did show positive leukocyte esterase as well as white blood cells concerning for the possibility of a urinary tract infection. Upon further questioning, the patient states that her severe and progressive difficulty in swallowing and eating foods has been going on for last week if not longer which has resulted in diminished oral intake with regard to both food and fluids. Routine blood test demonstrated a marked decline in her kidney function in comparison to baseline as well. It was felt that her poor oral intake coupled with continued diuretic use may have resulted in her acute kidney injury/acute renal failure and hence the patient was started on gentle IV fluids with subsequent admission to the hospital. Since her admission, her renal function has improved somewhat but is still not back to baseline. She is still having issues and trouble in terms of eating and drinking due to the a for mentions swallowing difficulties. Renal consultation was requested due to her acute kidney injury/ acute renal failure appear from review of her records, prior to her most recent hospitalization, her kidney function was we
[2022-03-22 11:56] VITALS: BMI 23.1
[2022-03-22] MEDS: DEXTROSE 5%/0.9% SOD CHL 1,000 ML 50 ML IV CONT (13:13)
[2022-03-22 14:00] VITALS: BP 112/56; PULSE 69; RESP 12; TEMP 36.9; O2SAT 93
[2022-03-22 15:22] LABS: Creatinine Urine 61.6 mg/dL; Urea Random Urine 420 MG/DL
[2022-03-22 15:31] LABS: Sodium Urine Random 71 meq/L
[2022-03-22 16:47] LABS: Glucose Point of Care 99 mg/dl (65-105)
[2022-03-22] MEDS: calcium polycarbophiL 625 MG TABLET PO (17:45)
[2022-03-22] MEDS: PANTOPRAZOLE 40 MG TABLET PO (17:45)
[2022-03-22] MEDS: POLYSACCHARIDE IRON COMPLEX 150 MG CAPSULE PO (17:45)
[2022-03-22 20:19] VITALS: O2SAT 93
[2022-03-22 20:21] LABS: Alanine Aminotransferase 14 U/L (6-35); Albumin Level 2.9 g/dL (3.5-5.1); Alkaline Phosphatase 99 U/L (38-126); Anion Gap 13 mmol/L (8-16); Aspartate Amino Transferase 23 U/L (14-36); Bilirubin,Total 0.2 mg/dL (0.2-1.3); Blood Urea Nitrogen 57 mg/dL (7-17); Calcium 8.1 mg/dL (8.4-10.2); Carbon Dioxide 21 mmol/L (22-30); Chloride 107 mmol/L (98-107); Estimated CRCL calculation 6 ml/min; Estimated Glomerular Filt Rate 7; Glucose 101 mg/dL (65-110); Potassium 3.9 mmol/L (3.4-5.0); Sodium 141 mmol/L (137-145)
[2022-03-22 22:00] VITALS: BP 135/56; PULSE 68; RESP 18; TEMP 37; O2SAT 93
[2022-03-22 22:26] LABS: Hematocrit 27.5 % (37.0-47.0); Hemoglobin 8.2 g/dL (12.0-15.0); Mean Corpuscular HGB Conc 29.8 g/dl (32-36); Mean Corpuscular Hemoglobin 25.9 pg (26-34); Mean Corpuscular Volume 86.8 fl (80-100); Mean Platelet Volume 9.5 fl (7.4-10.4); Platelet Count Result 212 k/mm3 (150-375); Red Blood Count 3.17 M/mm3 (4.2-5.4); Red Cell Distribution Width 19.1 % (11.5-14.5); White Blood Count 7.6 K/mm3 (4.5-10.0)
[2022-03-22 22:31] LABS: Glucose Point of Care 88 mg/dl (65-105)
[2022-03-22 22:46] LABS: NT Pro B Type Natriuretic Pept 10900 pg/mL (5-100)
[2022-03-22 23:30] LABS: Creatine Kinase 98 U/L (30-135); Phosphorus 5.7 mg/dL (2.5-4.5); Uric Acid 5.2 mg/dL (2.5-7.5)
[2022-03-23 06:00] VITALS: BP 142/61; PULSE 78; RESP 18; TEMP 36.6; O2SAT 90
[2022-03-23 07:19] LABS: Basophils Absolute Auto 0.1 K/mm3 (0.0-0.1); Basophils Percent Auto 0.8 % (0.2-1.2); Hematocrit 27.1 % (37.0-47.0); Hemoglobin 8.1 g/dL (12.0-15.0); Immature Granulocyte Absolute 0.06 K/mm3 (0.00-0.031); Immature Granulocyte Percent A 0.8 % (0-0.5); Lymphocytes Absolute Auto 0.86 K/mm3 (0.9-3.2); Lymphocytes Percent Auto 11.8 % (18.3-44.2); Mean Corpuscular HGB Conc 29.9 g/dl (32-36); Mean Corpuscular Hemoglobin 25.3 pg (26-34); Mean Corpuscular Volume 84.7 fl (80-100); Mean Platelet Volume 9.6 fl (7.4-10.4); Monocytes Absolute Auto 0.9 K/mm3 (0.1-0.6); Monocytes Percent Auto 11.7 % (2.6-8.5); Neutrophils Absolute Auto 5.4 K/mm3 (1.3-6.7); Neutrophils Percent Auto 74.9 % (45.5-73.1); Platelet Count Result 214 k/mm3 (150-375); Red Cell Distribution Width 19.1 % (11.5-14.5); White Blood Count 7.3 K/mm3 (4.5-10.0)
[2022-03-23 07:27] LABS: Alanine Aminotransferase 14 U/L (6-35); Albumin Level 2.8 g/dL (3.5-5.1); Alkaline Phosphatase 99 U/L (38-126); Anion Gap 14 mmol/L (8-16); Aspartate Amino Transferase 24 U/L (14-36); Bilirubin,Total 0.1 mg/dL (0.2-1.3); Blood Urea Nitrogen 54 mg/dL (7-17); Calcium 8.2 mg/dL (8.4-10.2); Carbon Dioxide 20 mmol/L (22-30); Chloride 109 mmol/L (98-107); Estimated CRCL calculation 6 ml/min; Estimated Glomerular Filt Rate 7; Glucose 78 mg/dL (65-110); Magnesium 1.9 mg/dL (1.6-2.3); Potassium 3.6 mmol/L (3.4-5.0); Sodium 143 mmol/L (137-145)
[2022-03-23 08:23] LABS: Hypersegmented Neutrophils Present; Hypochromasia 3+ (NORMAL); Platelet Estimate Adequate (Adequate)
[2022-03-23 08:24] LABS: Schistocytes 1+ (NORMAL)
[2022-03-23 08:25] LABS: Anisocytosis 1+ (NORMAL); Ovalocytes 1+ (NORMAL); Poikilocytosis 1+ (NORMAL)
[2022-03-23] MEDS: DEXTROSE 5%/0.9% SOD CHL 1,000 ML 75 ML IV CONT (08:38)
[2022-03-23] MEDS: HYDROXYCHLOROQUINE SULFATE 200 MG TABLET 400 MG PO (08:39)
[2022-03-23] MEDS: calcium polycarbophiL 625 MG TABLET PO ×2 (08:39→16:45)
[2022-03-23] MEDS: POLYSACCHARIDE IRON COMPLEX 150 MG CAPSULE PO ×2 (08:39→16:45)
[2022-03-23] MEDS: PANTOPRAZOLE 40 MG TABLET PO ×2 (08:39→16:45)
[2022-03-23] MEDS: MEMANTINE HCL XR 7 MG CAP 14 MG PO (08:39)
[2022-03-23] MEDS: DICLOFENAC SODIUM 1% 100 GM GEL (*BKC) 1 APPLIC TOPICAL ×2 (08:40→16:45)
[2022-03-23] MEDS: DOCUSATE SODIUM 100 MG CAPSULE PO (08:40)
[2022-03-23] MEDS: HEPARIN SODIUM 5,000 UNITS/ML VIAL 5000 UNITS SUB-Q ×2 (08:43→22:46)
[2022-03-23 08:50] VITALS: O2SAT 100
--- NOTE | 2022-03-23 10:03 | P.PNIM_ITS ---
Progress Note: A&P Assessment and Plan (1) Acute on chronic kidney failure: Code(s): N17.9 - Acute kidney failure, unspecified; N18.9 - Chronic kidney disease, unspecified Status: Acute Assessment and Plan: Creatinine 6.9, BUN 72, eGFR 6 on admission. patient's baseline appears to be 1.2 * nephrology consulted and appreciate recommendations. * Continue IV hydration * urine labs collected * Fena Score 4.8% ? obstruction however patient has daniel catheter inserted on 03/22/22 * Renal US without hydronephrosis or acute abnormality * Monitor renal function daily. * 03/23/22 BUN 54, creatinine 5.6, eGFR 7 * Her daughter reports the patient has been on Keytruda for lung cancer treatment and has also had poor oral intake. (2) Heart failure with preserved ejection fraction: Qualifiers: Heart failure chronicity: acute on chronic Qualified Code(s): I50.33 - Acute on chronic diastolic (congestive) heart failure Code(s): I50.30 - Unspecified diastolic (congestive) heart failure Status: Acute Assessment and Plan: Patient presented with altered mental status. chest x-ray and CT chest with pleural effusion. echo from 02/14/2022 showed EF of 60 65% with grade 1 diastolic dysfunction, BNP 67814 * Lasix on hold due to SUMI on CKD. * Monitor strict I/O and daily weights (3) Chronic anemia: Code(s): D64.9 - Anemia, unspecified Status: Acute Assessment and Plan: Chronic, stable, H&H 8.4/28.4. Near baseline. * continue home Iron * Serum iron, saturation, B12 and folate within normal limits. * transfuse if hemoglobin less than 7 (4) Hypertension: Code(s): I10 - Essential (primary) hypertension Status: Acute Assessment and Plan: chronic, stable * Continue to hold amlodipine and benazepril (5) Hypothyroidism: Code(s): E03.9 - Hypothyroidism, unspecified Status: Acute Assessment and Plan: Chronic, TSH 2.5, continue home levothyroxine 125 mcg p.o. daily (6) Lung cancer: Code(s): C34.90 - Malignant neoplasm of unspecified part of unspecified bronchus or lung Status: Acute Assessment and Plan: * Stable at this time * Her daughter reports she has been receiving Keytruda * Patient also on hydroxychloroquine and is immunocompromized. (7) Hypoglycemia: Code(s): E16.2 - Hypoglycemia, unspecified Status: Acute Assessment and Plan: * Glucose was 51 this morning * Hypoglycemia protocol started and continued * Probably related to not eating * Continue to trend labs * Adjust therapy as indicated (8) Dysphagia: Code(s): R13.10 - Dysphagia, unspecified Status: Acute Assessment and Plan: She c/o burning tongue and difficulty swallowing on admission. * Speech therapy consulted. Patient refused barium swallow and family aware. Started on minced/moist and nectar thickened liquids * Will empirically treat for aspiration pneumonia given respiratory complaints, altered mental status and abnormal chest x-ray. * Check B2, zinc, and iron panel. B12 and folate within normal limits. Plan CODE STATUS: DNR Disposition: assisted living facility versus SNF rehab Time Spent With Patient Time with patient: 25 - 35 minutes (>50% time spent patient education) Subjective Date/time seen: 03/23/22 10:03 She denies complaints. Nursing notes reviewed. Her daughter is at bedside and reports the patient's appetite and ora
--- NOTE | 2022-03-23 10:03 | PM.IMPN ---
Progress Note: A&P Assessment and Plan (1) Acute on chronic kidney failure: Code(s): N17.9 - Acute kidney failure, unspecified; N18.9 - Chronic kidney disease, unspecified Status: Acute Assessment and Plan: Creatinine 6.9, BUN 72, eGFR 6 on admission. patient's baseline appears to be 1.2 nephrology consulted and appreciate recommendations. Continue IV hydration urine labs collected Fena Score 4.8% ? obstruction however patient has daniel catheter inserted on 03/22/22 Renal US without hydronephrosis or acute abnormality Monitor renal function daily. 03/23/22 BUN 54, creatinine 5.6, eGFR 7 Her daughter reports the patient has been on Keytruda for lung cancer treatment and has also had poor oral intake. (2) Heart failure with preserved ejection fraction: Qualifiers: Heart failure chronicity: acute on chronic Qualified Code(s): I50.33 - Acute on chronic diastolic (congestive) heart failure Code(s): I50.30 - Unspecified diastolic (congestive) heart failure Status: Acute Assessment and Plan: Patient presented with altered mental status. chest x-ray and CT chest with pleural effusion. echo from 02/14/2022 showed EF of 60 65% with grade 1 diastolic dysfunction, BNP 90614 Lasix on hold due to SUMI on CKD. Monitor strict I/O and daily weights (3) Chronic anemia: Code(s): D64.9 - Anemia, unspecified Status: Acute Assessment and Plan: Chronic, stable, H&H 8.4/28.4. Near baseline. continue home Iron Serum iron, saturation, B12 and folate within normal limits. transfuse if hemoglobin less than 7 (4) Hypertension: Code(s): I10 - Essential (primary) hypertension Status: Acute Assessment and Plan: chronic, stable Continue to hold amlodipine and benazepril (5) Hypothyroidism: Code(s): E03.9 - Hypothyroidism, unspecified Status: Acute Assessment and Plan: Chronic, TSH 2.5, continue home levothyroxine 125 mcg p.o. daily (6) Lung cancer: Code(s): C34.90 - Malignant neoplasm of unspecified part of unspecified bronchus or lung Status: Acute Assessment and Plan: Stable at this time Her daughter reports she has been receiving Keytruda Patient also on hydroxychloroquine and is immunocompromized. (7) Hypoglycemia: Code(s): E16.2 - Hypoglycemia, unspecified Status: Acute Assessment and Plan: Glucose was 51 this morning Hypoglycemia protocol started and continued Probably related to not eating Continue to trend labs Adjust therapy as indicated (8) Dysphagia: Code(s): R13.10 - Dysphagia, unspecified Status: Acute Assessment and Plan: She c/o burning tongue and difficulty swallowing on admission. Speech therapy consulted. Patient refused barium swallow and family aware. Started on minced/moist and nectar thickened liquids Will empirically treat for aspiration pneumonia given respiratory complaints, altered mental status and abnormal chest x-ray. Check B2, zinc, and iron panel. B12 and folate within normal limits. Plan CODE STATUS: DNR Disposition: assisted living facility versus SNF rehab Time Spent With Patient Time with patient: 25 - 35 minutes (>50% time spent patient education) Subjective Date/time seen: 03/23/22 10:03 She denies complaints. Nursing notes reviewed. Her daughter is at bedside and reports the patient's appetite and oral intake has been poor. She also reports the patient has been lethargic. The patient refused the barium swallow today and her son was at bedside and declined further evaluation. The patient's daughter reports she has talked to the patient about hospice and the patient reported she is not yet ready to . The patient has minimal cough, no sputum and denies chest pain or dyspnea. Review of Systems Review of Systems: All systems reviewed & are unremarkable except
--- NOTE | 2022-03-23 10:20 | PCSTNOTE ---
Hospitalist requested/ordered Modified Barium Swallow study yesterday as patient seemed to have difficulty swallowing solid foods pills, some coughing noted. Today the patient refused the MBS and then son arrived and also requested no MBS until other issues and her overall alertness has improved. Therapist requested patient be placed on modified diet of Minced and Moist and Mildly Thick Liquids to assist with less effort required. Give pills with Mildly Thick Liquids or crush and put in applesauce. Son was in agreement with recommendations. Therapist will continue to monitor patient's status.
[2022-03-23] MEDS: metroNIDAZOLE 500 MG/ISO 100ML 500 MG/100 ML BAG 100 MG IVPB ×3 (11:06→22:49)
[2022-03-23 12:30] LABS: Iron 59 ug/dL (37-170)
[2022-03-23 12:37] LABS: Vitamin D 25 Hydroxy 42.8 ng/mL
[2022-03-23 12:40] LABS: Percent Iron Saturation 29 % (20-50)
[2022-03-23 14:00] VITALS: BP 145/58; PULSE 65; RESP 18; TEMP 36.7; O2SAT 98
--- NOTE | 2022-03-23 14:09 | PM.PNNEP ---
Progress Note: A&P Assessment and Plan (1) SUMI (acute kidney injury): Code(s): N17.9 - Acute kidney failure, unspecified Status: Inactive Assessment and Plan: creatinine was running around 1.2 - 1.3mg/dl during February 2022 hospitalization this was felt to be her new baseline given the need for diuretics to maintain her volume status acute insult likely due to combination of poor oral intake coupled with ongoing diuretic use and possibly UTI continue gentle IVF hydration as tolerated by respiratory status renal ultrasound normal urine electrolytes non-prerena; follow repeat labs and UOP (2) Hypertension: Qualifiers: Hypertension type: primary hypertension Qualified Code(s): I10 - Essential (primary) hypertension Code(s): I10 - Essential (primary) hypertension Status: Chronic Assessment and Plan: reasonable control at this time follow trend of hemodynamics (3) Chronic anemia: Code(s): D64.9 - Anemia, unspecified Status: Chronic Assessment and Plan: some worsening due to SUMI/ARF suspect some contributions for malignancy as well follow trend of H/H (4) Heart failure with preserved ejection fraction: Qualifiers: Heart failure chronicity: acute on chronic Qualified Code(s): I50.33 - Acute on chronic diastolic (congestive) heart failure Code(s): I50.30 - Unspecified diastolic (congestive) heart failure Status: Chronic Assessment and Plan: as noted on last hospitalization about a month ago hence the need for chronic diuretic therapy follow respiratory status closely with IVFs and holding diuretics (5) Lung cancer: Qualifiers: Laterality: right Lung location: upper lobe of lung Qualified Code(s): C34.11 - Malignant neoplasm of upper lobe, right bronchus or lung Code(s): C34.90 - Malignant neoplasm of unspecified part of unspecified bronchus or lung Status: Chronic Assessment and Plan: follow-up with Hem/Onc as outpatient Long and extensive discussion (> 20 minutes) with patient's daughter who is a retired nurse -- renal function improving with IVFs but I suspect the bigger issues is her lack of oral intake; if she is unable to eat or drink, I suspect her renal function will continues to fluctuate if not deteriorate; we discussed other options including G-tube placement versus comfort care measures depending on what can be done to help improve her oral intake. Will continue to follow. Subjective Date/time seen: 03/23/22 14:09 No apparent distress noted; slow improvement in renal function with current interventions; she continues to have poor oral intake at this time as well; daughter is at bedside and we discussed the case. Exam Narrative: General: elderly female in NAD but tired/fatigued Heart: normal S1 and S2; no rub Lungs: decreased at bases Abdomen: soft, nontender, nondistended, positive bowel sounds Extremities: no cyanosis or clubbing; no edema Skin: warm and dry Objective Data Vital Signs Vital Signs: Vital Signs Temp Pulse Resp BP Pulse Ox O2 Del Method O2 Flow Rate 03/23/22 14:00 36.7 C 65 18 145/58 H 98 03/23/22 08:50 100 Nasal Cannula 2 03/23/22 06:00 36.6 C 78 18 142/61 H 90 03/22/22 20:19 93 Nasal Cannula 3 03/22/22 22:00 37.0 C 68 18 135/56 L 93 Intake/Output Intake/Output: Intake & Output 03/20/22 03/21/22 03/22/22 03/23/22 23:59 23:59 23:59 23:59 Intake Total 1000 1560 1350 Output Total 1450 725 Balance 1000 110 625 Meds/Results Medications: Active Medications Generic Name Dose Route Start Last Admin Trade Name Freq PRN Reason Stop Dose Admin Acetaminophen 650 mg 03/21/22 23:58 Acetaminophen 325 Mg Tablet PO Q6H PRN Mild Pain (1-3) or Fever Calcium Carbonate 500 mg 03/22/22 09:00 03/23/22 08:39 Calcium/Vitamin D 500 Mg Tablet PO 500
[2022-03-23] MEDS: CENTRAL LINE FLUSH 10 ML IV PUSH (14:17)
[2022-03-23 21:46] VITALS: BP 149/57; PULSE 63; RESP 14; TEMP 36.3; O2SAT 100
[2022-03-23 22:46] VITALS: O2SAT 100
[2022-03-24] MEDS: DEXTROSE 5%/0.9% SOD CHL 1,000 ML 75 ML IV CONT ×2 (02:31→18:24)
[2022-03-24 06:00] VITALS: BP 148/55; PULSE 70; RESP 14; TEMP 36.9; O2SAT 90
[2022-03-24] MEDS: metroNIDAZOLE 500 MG/ISO 100ML 500 MG/100 ML BAG 100 MG IVPB ×3 (06:57→21:25)
[2022-03-24] MEDS: CENTRAL LINE FLUSH 10 ML IV PUSH ×2 (06:58→14:39)
[2022-03-24] MEDS: LEVOTHYROXINE SODIUM 125 MCG TABLET PO (06:58)
[2022-03-24 07:42] LABS: Anion Gap 14 mmol/L (8-16); Blood Urea Nitrogen 45 mg/dL (7-17); Carbon Dioxide 18 mmol/L (22-30); Chloride 112 mmol/L (98-107); Estimated CRCL calculation 7 ml/min; Estimated Glomerular Filt Rate 9; Glucose 94 mg/dL (65-110); Magnesium 1.8 mg/dL (1.6-2.3); Potassium 3.3 mmol/L (3.4-5.0); Sodium 144 mmol/L (137-145)
[2022-03-24 08:00] VITALS: O2SAT 90
[2022-03-24] MEDS: POLYSACCHARIDE IRON COMPLEX 150 MG CAPSULE PO ×2 (09:01→17:00)
[2022-03-24] MEDS: calcium polycarbophiL 625 MG TABLET PO ×2 (09:01→17:00)
[2022-03-24] MEDS: DOCUSATE SODIUM 100 MG CAPSULE PO (09:02)
[2022-03-24] MEDS: HYDROXYCHLOROQUINE SULFATE 200 MG TABLET 400 MG PO (09:02)
[2022-03-24] MEDS: PANTOPRAZOLE 40 MG TABLET PO ×2 (09:02→17:00)
[2022-03-24] MEDS: MEMANTINE HCL XR 7 MG CAP 14 MG PO (09:02)
[2022-03-24] MEDS: HEPARIN SODIUM 5,000 UNITS/ML VIAL 5000 UNITS SUB-Q ×2 (09:04→21:25)
[2022-03-24] MEDS: POTASSIUM CHLORIDE 20 MEQ PACKET (FOR LIQUID) 40 MEQ PO (09:10)
--- NOTE | 2022-03-24 10:08 | PCPTNOTE ---
Patient refused treatment this session. Patient states My body is just not up to it. Not today. Patient educated on the importance of participating in PT to improve strength and mobility. Patient voices understanding and continued to refuse PT.
--- NOTE | 2022-03-24 12:49 | PM.PNNEP ---
Progress Note: A&P Assessment and Plan (1) SUMI (acute kidney injury): Code(s): N17.9 - Acute kidney failure, unspecified Status: Inactive Assessment and Plan: creatinine was running around 1.2 - 1.3mg/dl during February 2022 hospitalization this was felt to be her new baseline given the need for diuretics to maintain her volume status acute insult likely due to combination of poor oral intake coupled with ongoing diuretic use and possibly UTI continue gentle IVF hydration as tolerated by respiratory status renal ultrasound normal urine electrolytes non-prerenal follow repeat labs and UOP (2) Hypertension: Qualifiers: Hypertension type: primary hypertension Qualified Code(s): I10 - Essential (primary) hypertension Code(s): I10 - Essential (primary) hypertension Status: Chronic Assessment and Plan: reasonable control at this time follow trend of hemodynamics (3) Chronic anemia: Code(s): D64.9 - Anemia, unspecified Status: Chronic Assessment and Plan: some worsening due to SUMI/ARF suspect some contributions for malignancy as well follow trend of H/H (4) Heart failure with preserved ejection fraction: Qualifiers: Heart failure chronicity: acute on chronic Qualified Code(s): I50.33 - Acute on chronic diastolic (congestive) heart failure Code(s): I50.30 - Unspecified diastolic (congestive) heart failure Status: Chronic Assessment and Plan: as noted on last hospitalization about a month ago hence the need for chronic diuretic therapy follow respiratory status closely with IVFs and holding diuretics (5) Lung cancer: Qualifiers: Laterality: right Lung location: upper lobe of lung Qualified Code(s): C34.11 - Malignant neoplasm of upper lobe, right bronchus or lung Code(s): C34.90 - Malignant neoplasm of unspecified part of unspecified bronchus or lung Status: Chronic Assessment and Plan: follow-up with Hem/Onc as outpatient The issue of feeding tube placement as well as hospice was discussed with family; however, patient is not willing to go this far as of yet; continues to discuss with family goals of therapy. Will continue to follow. Subjective Date/time seen: 03/24/22 12:49 No real significant change noted at this time; creatinine still improving with IVF hydration but patient's oral intake still remains quite poor despite conservative therapy; no acute issues/events overnight or earlier this AM. Exam Narrative: General: elderly female in NAD but tired/fatigued Heart: normal S1 and S2; no rub Lungs: decreased at bases Abdomen: soft, nontender, nondistended, positive bowel sounds Extremities: no cyanosis or clubbing; no edema Skin: warm and intact Objective Data Vital Signs Vital Signs: Vital Signs Temp Pulse Resp BP Pulse Ox O2 Del Method O2 Flow Rate 03/24/22 08:00 90 Nasal Cannula 2 03/24/22 06:00 36.9 C 70 14 148/55 H 90 03/23/22 22:46 100 Nasal Cannula 3 03/23/22 21:46 36.3 C L 63 14 149/57 H 100 03/23/22 14:00 36.7 C 65 18 145/58 H 98 Intake/Output Intake/Output: Intake & Output 03/21/22 03/22/22 03/23/22 03/24/22 23:59 23:59 23:59 23:59 Intake Total 1000 1560 2960 100 Output Total 1450 1425 400 Balance 2129 892 5597 -300 Meds/Results Medications: Active Medications Generic Name Dose Route Start Last Admin Trade Name Freq PRN Reason Stop Dose Admin Acetaminophen 650 mg 03/21/22 23:58 Acetaminophen 325 Mg Tablet PO Q6H PRN Mild Pain (1-3) or Fever Calcium Carbonate 500 mg 03/22/22 09:00 03/24/22 09:02 Calcium/Vitamin D 500 Mg Tablet PO 500 mg QAM BASSEM Administration Calcium Polycarbophil 625 mg 03/22/22 09:00 03/24/22 09:01 Calcium Polycarbophil 625 Mg Tablet PO 625 mg BID BASSEM Administration Dextrose 12.5 gm 03/22/22 07:45 03/22
[2022-03-24 14:00] VITALS: BP 135/65; PULSE 69; RESP 18; TEMP 35.9; O2SAT 94
--- NOTE | 2022-03-24 17:21 | PM.IMPN ---
Progress Note: A&P Assessment and Plan (1) Acute on chronic kidney failure: Code(s): N17.9 - Acute kidney failure, unspecified; N18.9 - Chronic kidney disease, unspecified Status: Acute Assessment and Plan: Creatinine 6.9, BUN 72, eGFR 6 on admission. patient's baseline appears to be 1.2 nephrology consulted and appreciate recommendations. Continue IV hydration urine labs collected Fena Score 4.8% ? obstruction however patient has daniel catheter inserted on 03/22/22 Renal US without hydronephrosis or acute abnormality Monitor renal function daily. 03/23/22 BUN 54, creatinine 5.6, eGFR 7 Her daughter reports the patient has been on Keytruda for lung cancer treatment and has also had poor oral intake. 03/24/22 BUN 45, creatinine 4.7, eGFR 9, phos 5, mag 1.8, sodium 144, K 3.3. chloride 117. UOP adequate in the past 24 hours. net balance +3L. Patient's oral intake is still poor and will therefore continue IV fluids and monitor daily renal function and electrolytes. (2) Heart failure with preserved ejection fraction: Qualifiers: Heart failure chronicity: acute on chronic Qualified Code(s): I50.33 - Acute on chronic diastolic (congestive) heart failure Code(s): I50.30 - Unspecified diastolic (congestive) heart failure Status: Chronic Assessment and Plan: Patient presented with altered mental status. chest x-ray and CT chest with pleural effusion. echo from 02/14/2022 showed EF of 60 65% with grade 1 diastolic dysfunction, BNP 95451 Lasix on hold due to SUMI on CKD. Monitor strict I/O and daily weights- weight 58 kg to 61 kg. Monitor respiratory status. (3) Decreased appetite: Code(s): R63.0 - Anorexia Status: Acute Assessment and Plan: Patient with poor oral food and liquid intake prior to admission. Admitted with SUMI and noted to have episode of hypoglycemia. Strain Technician consulted and appreciate recommendations. Ensure BID started Trial megace in am. Will start at lowered dose given renal function. Possible tube-feeding has been discussed with family by Nephrology team and hospice has been discussed with the daughter and myself. The patient has stated to family she is not yet ready to . (4) Hypoglycemia: Code(s): E16.2 - Hypoglycemia, unspecified Status: Acute Assessment and Plan: Glucose was 52 on 03/22/22 and changed to D5NS fluids. Hypoglycemia protocol PRN glucose <70 Secondary to poor dietary intake. Continue dextrose IV fluids and encourage food intake. (5) Dysphagia: Qualifiers: Dysphagia type: unspecified Qualified Code(s): R13.10 - Dysphagia, unspecified Code(s): R13.10 - Dysphagia, unspecified Status: Acute Assessment and Plan: She c/o burning tongue and difficulty swallowing on admission. Speech therapy consulted. Patient refused barium swallow and family aware. Started on minced/moist and nectar thickened liquids Will empirically treat for aspiration pneumonia given respiratory complaints, altered mental status and abnormal chest x-ray. Check B2, zinc, and iron panel. B12 and folate within normal limits. Patient with opacities on chest x-ray and increased bands on 03/23/22. Started on empiric treatment for aspiration pneumonia - IV vancomycin pharmacy to dose, IV cefepime and IV metronidazole. Given the patient has lung cancer, is on immunotherapy and hydroxychloroquine with continue empiric antibiotics for now and monitor respiratory status. (6) Chronic anemia: Code(s): D64.9 - Anemia, unspecified Status: Chronic Assessment and Plan: Chronic, stable, H&H 8.4/28.4. Near baseline. continue home Iron Serum iron, saturation, B12 and folate within normal limits. transfuse if hemoglobin less than 7 03/24/22 stable (7) Hypertension: Qualifiers: Hypertension type: primary hypertension Qualified Code(s): I10 -
[2022-03-24 22:28] VITALS: BP 150/71; PULSE 66; RESP 16; TEMP 36.6; O2SAT 95
[2022-03-25] MEDS: DEXTROSE 5%/0.9% SOD CHL 1,000 ML 75 ML IV CONT (06:06)
[2022-03-25] MEDS: metroNIDAZOLE 500 MG/ISO 100ML 500 MG/100 ML BAG 100 MG IVPB (06:06)
[2022-03-25] MEDS: CENTRAL LINE FLUSH 10 ML IV PUSH (06:06)
[2022-03-25] MEDS: LEVOTHYROXINE SODIUM 125 MCG TABLET PO (06:06)
[2022-03-25 06:08] VITALS: BP 146/71; PULSE 72; RESP 18; TEMP 36.6; O2SAT 92
[2022-03-25 06:44] LABS: Anion Gap 9 mmol/L (8-16); Blood Urea Nitrogen 41 mg/dL (7-17); Calcium 8.4 mg/dL (8.4-10.2); Carbon Dioxide 20 mmol/L (22-30); Chloride 115 mmol/L (98-107); Estimated CRCL calculation 8 ml/min; Estimated Glomerular Filt Rate 9; Glucose 93 mg/dL (65-110); Magnesium 1.8 mg/dL (1.6-2.3); Potassium 3.3 mmol/L (3.4-5.0); Sodium 144 mmol/L (137-145)
[2022-03-25 07:02] LABS: Vancomycin Random 8.8 ug/mL (10-20)
[2022-03-25 08:00] VITALS: O2SAT 93
[2022-03-25] MEDS: POLYSACCHARIDE IRON COMPLEX 150 MG CAPSULE PO (09:11)
[2022-03-25] MEDS: HYDROXYCHLOROQUINE SULFATE 200 MG TABLET 400 MG PO (09:11)
[2022-03-25] MEDS: MEMANTINE HCL XR 7 MG CAP 14 MG PO (09:11)
[2022-03-25] MEDS: PANTOPRAZOLE 40 MG TABLET PO (09:11)
[2022-03-25] MEDS: DOCUSATE SODIUM 100 MG CAPSULE PO (09:11)
[2022-03-25] MEDS: MEGESTROL ACETATE (*CHEMO) ORAL SUSP 40 MG/ML SYR 400 MG PO (09:12)
[2022-03-25] MEDS: calcium polycarbophiL 625 MG TABLET PO (09:12)
[2022-03-25] MEDS: HEPARIN SODIUM 5,000 UNITS/ML VIAL 5000 UNITS SUB-Q (09:18)
[2022-03-25] MEDS: DICLOFENAC SODIUM 1% 100 GM GEL (*BKC) 1 APPLIC TOPICAL (09:20)
--- NOTE | 2022-03-25 09:41 | PC.NURSE ---
Patient vomited morning medication and refused to eat breakfast.
[2022-03-25 14:00] VITALS: BP 147/53; PULSE 70; RESP 16; TEMP 36.6; O2SAT 95
--- NOTE | 2022-03-25 15:33 | PM.DS ---
DS: Admitting Diagnosis Discharge Date 03/25/2022 1533 Admitting Diagnosis Acute on chronic kidney failure: ?Code(s): N17.9 - Acute kidney failure, unspecified; N18.9 - Chronic kidney disease, unspecified ?Status:?Acute (2) Heart failure with preserved ejection fraction: ?Code(s): I50.30 - Unspecified diastolic (congestive) heart failure ?Status:?Acute (3) Chronic anemia: ?Code(s): D64.9 - Anemia, unspecified ?Status:?Acute (4) Hypertension: ?Code(s): I10 - Essential (primary) hypertension ?Status:?Acute (5) Hypothyroidism: ?Code(s): E03.9 - Hypothyroidism, unspecified ?Status:?Acute (6) Spinal stenosis: ?Code(s): M48.00 - Spinal stenosis, site unspecified ?Status:?Acute (7) Lung cancer: ?Code(s): C34.90 - Malignant neoplasm of unspecified part of unspecified bronchus or lung ?Status:?Acute DS: Discharge Diagnosis Discharge Diagnosis (1) Acute on chronic kidney failure: Qualifiers: Acute renal failure type: unspecified Chronic kidney disease stage: stage 4 (severe) Qualified Code(s): N17.9 - Acute kidney failure, unspecified; N18.4 - Chronic kidney disease, stage 4 (severe) Code(s): N17.9 - Acute kidney failure, unspecified; N18.9 - Chronic kidney disease, unspecified Status: Acute (2) Heart failure with preserved ejection fraction: Qualifiers: Heart failure chronicity: acute on chronic Qualified Code(s): I50.33 - Acute on chronic diastolic (congestive) heart failure Code(s): I50.30 - Unspecified diastolic (congestive) heart failure Status: Chronic (3) Decreased appetite: Code(s): R63.0 - Anorexia Status: Acute (4) Hypoglycemia: Code(s): E16.2 - Hypoglycemia, unspecified Status: Acute (5) Dysphagia: Qualifiers: Dysphagia type: unspecified Qualified Code(s): R13.10 - Dysphagia, unspecified Code(s): R13.10 - Dysphagia, unspecified Status: Acute (6) Chronic anemia: Code(s): D64.9 - Anemia, unspecified Status: Chronic (7) Hypertension: Qualifiers: Hypertension type: primary hypertension Qualified Code(s): I10 - Essential (primary) hypertension Code(s): I10 - Essential (primary) hypertension Status: Chronic (8) Hypothyroidism: Qualifiers: Hypothyroidism type: unspecified Qualified Code(s): E03.9 - Hypothyroidism, unspecified Code(s): E03.9 - Hypothyroidism, unspecified Status: Chronic (9) Lung cancer: Qualifiers: Laterality: right Lung location: upper lobe of lung Qualified Code(s): C34.11 - Malignant neoplasm of upper lobe, right bronchus or lung Code(s): C34.90 - Malignant neoplasm of unspecified part of unspecified bronchus or lung Status: Chronic (10) Hospice care: Code(s): Z51.5 - Encounter for palliative care Status: Acute DS: Summary Hospital Course Reason for hospitalization: shortness of breath and weakness Hospital Course: Negin Pastrana is an 81-year-old female with dementia, hypertension, aortic valve stenosis, sarcoidosis, iron deficiency anemia, hypothyroidism, sarcoidosis, previous C diff colitis, GERD, breast cancer, and lung cancer currently on Keytruda who presented to the emergency department for evaluation of shortness of breath and generalized weakness. She was admitted to this facility about 1 month ago at which time she presented with increasing lower extremity edema and findings of congestive heart failure. Echocardiogram at that time showed an EF of 60 to 65% with grade 1 diastolic dysfunction, she was diuresed with improvement, and was discharged back to [facility] where she has been for the last several months. During that stay her creatinine was consistently between 1.2 and 1.30 and that was presumed to be her new baseline. Her family reported she has not been doing well recently with poor oral intake, occasio
--- NOTE | 2022-03-25 17:06 | PC.NURSE ---
Called [facility] and gave report to Marycruz at [phone]
[2022-03-25] MEDS: HEPARIN SODIUM LOCK FLUSH 500 UNITS/5 ML VIAL IV PUSH (17:14)
[2022-03-26 12:55] LABS: Osmolality, Urine 365 mOsm/kg (50-1200)
[2022-03-26 13:06] LABS: Zinc 67 mcg/dL (60-130)
[2022-03-30 15:08] LABS: Vitamin B2 <5.0 nmol/L (6.2-39.0)
== END 2022-03-25 17:25 | disposition home or self-care (01) | DRG 682 ==
LOC: ANHED 19:08 → ANH3MEDSUR 21:48
PROVIDERS: Emergency Medicine; Nurse Practitioner; Physician Assistant; Admitting Provider Family Medicine; Emergency Provider Emergency Medicine; PCP Nurse Practitioner Family; Visit Provider Nurse Practitioner Family
DX: N17.9 Acute kidney failure, unspecified (principal); I50.33 Acute on chronic diastolic (congestive) heart failure; C34.11 Malignant neoplasm of upper lobe, right bronchus or lung; I13.0 Hypertensive heart and chronic kidney disease with heart failure and stage 1 through stage 4 chronic kidney disease, or unspecified chronic kidney disease; Z66 Do not resuscitate; D86.9 Sarcoidosis, unspecified; D50.9 Iron deficiency anemia, unspecified; D63.1 Anemia in chronic kidney disease; R13.10 Dysphagia, unspecified; R63.0 Anorexia; E03.9 Hypothyroidism, unspecified; E16.2 Hypoglycemia, unspecified; F03.90 Unspecified dementia, unspecified severity, without behavioral disturbance, psychotic disturbance, mood disturbance, and anxiety; I35.0 Nonrheumatic aortic (valve) stenosis; K21.9 Gastro-esophageal reflux disease without esophagitis; N18.9 Chronic kidney disease, unspecified; Z90.49 Acquired absence of other specified parts of digestive tract; Z98.49 Cataract extraction status, unspecified eye; Z85.3 Personal history of malignant neoplasm of breast; Z90.710 Acquired absence of both cervix and uterus; Z96.642 Presence of left artificial hip joint; Z96.651 Presence of right artificial knee joint; Z20.822 Contact with and (suspected) exposure to COVID-19
CPT/HCPCS: 36415; 70450; 71046; 71250; 74176; 76775; 80048; 80053; 80202; 81001; 82306; 82550; 82570; 82607; 82746; 82948; 83540; 83550; 83735; 83880; 83935; 84100; 84145; 84252; 84300; 84443; 84540; 84550; 84630; 85025; 85027; 86140; 87040; 87077; 87081; 87086; 87088; 87186; 87636; 92610; 93005; 96361; 96375; 97161; 97165; 97535; 99285; A9270; G0378; J0692; J0696; J1642; J1644; J3370; J7030; J7042